=== PATIENT | male | born 1990 | race African-American/Black ===

== ENCOUNTER 2019-03-09 14:34 | Emergency (ER) | payer MEDICARE, OTHER ==
[~2019-03-09] VITALS: Ht 175.3 cm; Wt 81.6 kg
[~2019-03-09 14:34] MED LIST: NKM
[2019-03-09] MEDS ORDERED: RISPERDAL1 MG PO (15:33)
--- NOTE | 2019-03-09 15:33 | Emergency Room Report ---
History of Present Illness General Chief Complaint: Medication Refill Source: Patient Present Illness HPI 29-year-old male presents to the emergency department requesting medication refill for 1 mg Risperdal for which she takes daily. Patient states he has been out of his medication for 3 weeks he states he takes it for his schizophrenia. Patient denies symptoms at this time he denies SI, HI, delusions , hallucinations or manic episodes. Patient reports that he paces frequently. Patient states he does not currently have a primary prescribing provider he states he gets his refills from multiple different ERs he is a local to the [place] area he denies being this. Patient denies pain or chest pain, shortness of breath, wheezing, ANTOINE, drug or alcohol use. Patient denies fevers or chills. No other aggravating or relieving factors at this time Allergies: Coded Allergies: No Known Allergies (Unverified , 11/14/13) Patient History Past Medical History: see triage record, psych hx Past Surgical History: none Pertinent Family History: none Immunizations: UTD Reviewed Nursing Documentation: PMH: Agreed; PSxH: Agreed Nursing Documentation-PMH Past Medical History: No History, Except For History Of Psychiatric Problem: Yes - Schizophrenia Hx Seizures: Yes Review of Systems All Other Systems: negative except mentioned in HPI Physical Exam Vital Signs Date Time Temp Pulse Resp B/P (MAP) Pulse Ox O2 Delivery O2 Flow Rate FiO2 03/09/19 14:53 98.4 92 15 110/65 (80) 99 Room Air Sp02 EP Interpretation: reviewed, normal General Appearance: no apparent distress, alert, GCS 15, non-toxic Head: normocephalic, atraumatic Eyes: bilateral eye normal inspection, bilateral eye PERRL ENT: hearing grossly normal, normal voice Neck: full range of motion Respiratory: chest non-tender, lungs clear, normal breath sounds, speaking full sentences Cardiovascular #1: regular rate, rhythm Musculoskeletal: back normal, gait/station normal, normal range of motion, non- tender Neurologic: alert, oriented x3, responsive, motor strength/tone normal, sensory intact, normal gait, speech normal, grossly normal Psychiatric: judgement/insight normal, memory normal, no suicidal/homicidal ideation, no delusions, other - in appropriately insertedgiggling and smiling in accordance with conversation. Patient does provide sufficient detail answers to questions. Lymphatic: no adenopathy Medical Decision Making PA Attestation Dr. Chavez is my supervising Physician whom patient management has been discussed with. Diagnostic Impression: Primary Impression: Encounter for medication refill Additional Impression: Schizophrenia Qualified Codes: F20.9 - Schizophrenia, unspecified ER Course 29-year-old male presents to the emergency department requesting medication refill for 1 mg Risperdal for which she takes daily. Patient states he has been out of his medication for 3 weeks he states he takes it for his schizophrenia. Patient denies symptoms at this time he denies SI, HI, delusions , hallucinations or manic episodes. Patient reports that he paces frequently. Patient states he does not currently have a primary prescribing provider he states he gets his refills from multiple different ERs he is a local to the [place] area he denies being this. Patient denies pain or chest pain, shortness of breath, wheezing, ANTOINE, drug or alcohol use. Patient denies fevers or chills. No other aggravating or relieving factors at this time. Ddx considered but are not limited to: drug seeking, OD, compliance with medications, noncompliance with follow-up instructions, doctor shopping, schizophrenic episode just to name a few. Vital signs: are WNL, pt. is afebrile H&PE are most consistent with need for medication refill. --Patient does not pose an obvious harm to self or others he is alert and oriented and able to make decisions on his own. He is well-groomed/kept and in no acute distress and nontoxic in appearance. ORDERS: none required at this time, the diagnosis is clinical ED INTERVENTIONS: Risperdal 1mg PO -I do not identify an emergent condition at this time. With current presentation , pt. is stable for close outpatient follow up and conservative treatment. D/ w pt. to return promptly to ED with worsening or new symptoms.- Pt. verbalizes' understanding and agreement with proposed treatment plan.proposed treatment plan. DISCHARGE: At this time pt. is stable for d/c to home. Will provide printed patient care instructions, and any necessary prescriptions. Care plan and follow up instructions have been discussed with the patient prior to discharge. Last Vital Signs Date Time Temp Pulse Resp B/P (MAP) Pulse Ox O2 Delivery O2 Flow Rate FiO2 03/09/19 14:53 98.4 92 15 110/65 (80) 99 Room Air Disposition: HOME, SELF-CARE Condition: Stable Scripts Risperidone* (RISPERDAL*) 1 Mg Tablet 1 MG PO DAILY, #30 TAB Prov: Elsa Bo 03/09/19 Referrals: [facility] Patient Instructions: Medicine Refill at the Emergency Department Additional Instructions: Take medications as directed. Follow up with a Mental Health Specialist/ Psychiatrist in 3 days, even if your symptoms have resolved. --Please review [facility] resource information provided Return sooner to ED if new symptoms occur, or current symptoms become worse. - Please note that this Emergency Department Report was dictated using CloudAptitudeinterface control officer technology software, occasionally this can lead to erroneous entry secondary to interpretation by the dictation equipment. Elsa Bo Mar 09, 2019 15:33
[2019-03-09 15:57] VITALS: BP 110/65
--- NOTE | 2019-03-09 15:59 | NUR ---
ER DISCHARGE NOTE: Patient is cleared to be discharged per ERMD, pt is aox4, on room air, with stable vital signs. pt was given dc and prescription instructions, pt was able to verbalize understanding, pt id band removed without complications. pt is able to ambulate with steady gait. pt took all belongings.
== END 2019-03-09 15:59 | disposition home or self-care (01) ==
LOC: EMR 15:00
DX: F20.9 Schizophrenia, unspecified (principal); Z76.0 Encounter for issue of repeat prescription; G40.909 Epilepsy, unspecified, not intractable, without status epilepticus
CPT/HCPCS: 99282

== ENCOUNTER 2019-03-19 13:16 | Emergency (ER) | payer MEDICARE, OTHER ==
[~2019-03-19] VITALS: Ht 175.3 cm; Wt 81.6 kg
[~2019-03-19 13:16] MED LIST changes: +RISPERDAL1 MG PO
[2019-03-19] MEDS ORDERED: BENZTROPINE ME0.5 MG PO (13:29)
--- NOTE | 2019-03-19 13:30 | NUR ---
ED Nurse Note: Patient walked into ED c/o anxiety exacerbation, patient reports he is waiting for approval to see psychiatrist. patient is alert awake x4 ambulatory steady gait, breathing unlabored and even.
--- NOTE | 2019-03-19 14:30 | Emergency Room Report ---
History of Present Illness General Chief Complaint: General Complaint Present Illness HPI 29-year-old male presents to the emergency department requesting medications for anxiety. Patient reports in the past she was prescribed Xanax he states he has been having several anxiety attacks per week. Patient states currently he is not having any symptoms. Patient denies having a primary prescribing psychiatric provider. Patient is currently taking Risperdal. He reports hx of depression. Denies drug use, SI/HI, PSAs, or psychiatric hospitalizations. No aggravating or relieving factors at this time. During attack pt. describes shakiness and heightened anxiety, Denies CP, SOB or palpitations. Denies sweating or weight loss. Allergies: Coded Allergies: No Known Allergies (Unverified , 11/14/13) Patient History Past Medical History: see triage record Past Surgical History: none Pertinent Family History: none Reviewed Nursing Documentation: PMH: Agreed; PSxH: Agreed Nursing Documentation-PMH History Of Psychiatric Problem: Yes - depression Hx Seizures: Yes Review of Systems All Other Systems: negative except mentioned in HPI Physical Exam Vital Signs Date Time Temp Pulse Resp B/P (MAP) Pulse Ox O2 Delivery O2 Flow Rate FiO2 03/19/19 13:23 98.6 80 18 119/70 (86) 99 Room Air Sp02 EP Interpretation: reviewed, normal General Appearance: no apparent distress, alert, GCS 15, non-toxic Head: normocephalic, atraumatic Eyes: bilateral eye normal inspection, bilateral eye PERRL ENT: hearing grossly normal, normal voice Neck: full range of motion Respiratory: chest non-tender, lungs clear, normal breath sounds, speaking full sentences Cardiovascular #1: regular rate, rhythm Musculoskeletal: back normal, gait/station normal, normal range of motion, non- tender Neurologic: alert, oriented x3, responsive, motor strength/tone normal, sensory intact, speech normal, grossly normal Psychiatric: judgement/insight normal, memory normal, no suicidal/homicidal ideation, no delusions, other - calm affect, on occasions smiles and giggles inappropriately/ not in congruence with dialogue Skin: no rash, normal inspection Medical Decision Making PA Attestation Dr. Thompson Is my supervising Physician whom patient management has been discussed with. Diagnostic Impression: Primary Impression: Anxiety Additional Impression: Medication requested by patient but not prescribed or administered ER Course 29-year-old male presents to the emergency department requesting medications for anxiety. Patient reports in the past she was prescribed Xanax he states he has been having several anxiety attacks per week. Patient states currently he is not having any symptoms. Patient denies having a primary prescribing psychiatric provider. Patient is currently taking Risperdal. [place] drug use, SI /HI, PSAs, or psychiatric hospitalizations. No aggravating or relieving factors at this time. During attack pt. describes shakiness and heightened anxiety, Denies CP, SOB or palpitations. Denies sweating or weight loss. Ddx considered but are not limited to: drug seeking, OD, generalized anxiety, IL /PE just to name a few. Vital signs: are WNL, pt. is afebrile H&PE are most consistent with non-emergent request for medication refill. ORDERS: none required at this time, the diagnosis is clinical--- d/w pt. that this needs to be rx'd to him by a internet specialist. will provide psych resources for medication management. in the mean time will write for small qty of Vistaril of off label anxiety treatment PRN. ED INTERVENTIONS: None required at this time. DISCHARGE: At this time pt. is stable for d/c to home. Will provide printed patient care instructions, and any necessary prescriptions. Care plan and follow up instructions have been discussed with the patient prior to discharge. Last Vital Signs Date Time Temp Pulse Resp B/P (MAP) Pulse Ox O2 Delivery O2 Flow Rate FiO2 03/19/19 13:23 98.6 80 18 119/70 (86) 99 Room Air Disposition: HOME, SELF-CARE Condition: Stable Scripts Hydroxyzine Pamoate (VISTARIL) 25 Mg Capsule 25 MG PO Q6HR, #12 CAP Prov: Elsa Bo 03/19/19 Referrals: [facility] Patient Instructions: Generalized Anxiety Disorder, Medical Screening Exam Additional Instructions: Take medications as directed. Follow up with a Mental Health Specialist/ Psychiatrist in 3 days, even if your symptoms have resolved. --Please review [facility] resource information provided Return sooner to ED if new symptoms occur, or current symptoms become worse. - Please note that this Emergency Department Report was dictated using SecureNetfield sales representative technology software, occasionally this can lead to erroneous entry secondary to interpretation by the dictation equipment. Elsa Bo Mar 19, 2019 14:30
[2019-03-19] MEDS ORDERED: VISTARIL25 M1 PO (14:31)
[2019-03-19 14:37] VITALS: BP 119/70
--- NOTE | 2019-03-19 14:38 | NUR ---
ER DISCHARGE NOTE: Patient is cleared to be discharged per ERMD, pt is aox4, on room air, with stable vital signs. pt was given dc and prescription instructions, pt was able to verbalize understanding. pt is able to ambulate with steady gait. pt took all belongings.
[2019-03-19 14:39] VITALS: BP 119/70
== END 2019-03-19 14:35 | disposition home or self-care (01) ==
LOC: EMR 14:04
DX: F41.9 Anxiety disorder, unspecified (principal); F32.9 Major depressive disorder, single episode, unspecified
CPT/HCPCS: 99282

== ENCOUNTER 2019-04-13 14:06 | Emergency (ER) | payer MEDICARE, OTHER ==
[~2019-04-13] VITALS: Ht 175.3 cm; Wt 81.6 kg
[~2019-04-13 14:06] MED LIST changes: +BENZTROPINE ME0.5 MG PO; +VISTARIL25 M1 PO
[2019-04-13 14:30] VITALS: BP 111/65
[2019-04-13] MEDS ORDERED: NKM (14:31)
--- NOTE | 2019-04-13 14:39 | Emergency Room Report ---
History of Present Illness General Chief Complaint: Behavioral Complaint Source: Patient Present Illness HPI 29-year-old male history of smoking history of depression presents with acute suicidal ideations patient attempted to run into traffic, patient was seen by his friends who then recommended that he needs go to a psychiatric facility, he denies any aggravating alleviating factors he takes Abilify 15 mg daily, denies any fevers chills chest pain shortness of breath, severity is severe and constant Allergies: Coded Allergies: No Known Allergies (Unverified , 11/14/13) Patient History Past Medical History: see triage record Social History: Reports: smoking Reviewed Nursing Documentation: PMH: Agreed; PSxH: Agreed Nursing Documentation-PMH Past Medical History: No History, Except For History Of Psychiatric Problem: Yes - schizophrenia Hx Seizures: Yes Review of Systems All Other Systems: negative except mentioned in HPI Physical Exam Vital Signs Date Time Temp Pulse Resp B/P (MAP) Pulse Ox O2 Delivery O2 Flow Rate FiO2 04/13/19 14:26 98.2 89 17 111/65 (80) 98 Room Air Sp02 EP Interpretation: reviewed, normal General Appearance: well appearing, no apparent distress, alert Head: normocephalic, atraumatic Eyes: bilateral eye PERRL, bilateral eye EOMI ENT: uvula midline, moist mucus membranes Neck: supple, thyroid normal, supple/symm/no masses Respiratory: lungs clear, no respiratory distress, no retraction, no accessory muscle use Cardiovascular #1: normal peripheral pulses, regular rate, rhythm, no edema, no gallop, no murmur Gastrointestinal: non tender, soft, no guarding, no rebound Musculoskeletal: normal inspection Neurologic: alert, oriented x3 Psychiatric: mood/affect normal Skin: no rash, warm/dry Medical Decision Making Diagnostic Impression: Primary Impression: Behavioral disorder Additional Impression: Suicidal behavior Qualified Codes: R46.89 - Other symptoms and signs involving appearance and behavior ER Course 29-year-old male presents with acute suicidal ideations, his plan is to run into cars at some point at the moment he is not currently suicidal he states he wants to be seen at psychiatric facility voluntarily Patient is medically cleared Patient accepted by [facility] Laboratory Tests Test 04/13/19 14:50 White Blood Count 7.2 K/UL (4.8-10.8) Red Blood Count 5.02 M/UL (4.70-6.10) Hemoglobin 14.9 G/DL (14.2-18.0) Hematocrit 43.1 % (42.0-52.0) Mean Corpuscular Volume 86 FL (80-99) Mean Corpuscular Hemoglobin 29.6 PG (27.0-31.0) Mean Corpuscular Hemoglobin Concent 34.5 G/DL (32.0-36.0) Red Cell Distribution Width 11.7 % (11.6-14.8) Platelet Count 255 K/UL (150-450) Mean Platelet Volume 6.6 FL (6.5-10.1) Neutrophils (%) (Auto) 43.5 % (45.0-75.0) L Lymphocytes (%) (Auto) 36.8 % (20.0-45.0) Monocytes (%) (Auto) 8.4 % (1.0-10.0) Eosinophils (%) (Auto) 9.9 % (0.0-3.0) H Basophils (%) (Auto) 1.5 % (0.0-2.0) Sodium Level 144 MMOL/L (136-145) Potassium Level 3.9 MMOL/L (3.5-5.1) Chloride Level 111 MMOL/L (98-107) H Carbon Dioxide Level 27 MMOL/L (21-32) Anion Gap 6 mmol/L (5-15) Blood Urea Nitrogen 8 mg/dL (7-18) Creatinine 0.9 MG/DL (0.55-1.30) Estimate Glomerular Filtration Rate > 60 mL/min (>60) Glucose Level 91 MG/DL (74-106) Calcium Level 8.5 MG/DL (8.5-10.1) Total Bilirubin 0.2 MG/DL (0.2-1.0) Aspartate Amino Transferase (AST) 17 U/L (15-37) Alanine Aminotransferase (ALT) 17 U/L (12-78) Alkaline Phosphatase 56 U/L (46-116) Total Protein 5.9 G/DL (6.4-8.2) L Albumin 3.1 G/DL (3.4-5.0) L Globulin 2.8 g/dL Albumin/Globulin Ratio 1.1 (1.0-2.7) Salicylates Level 3.6 ug/mL (2.8-20) Urine Opiates Screen Negative (NEGATIVE) Acetaminophen Level < 2 MCG/ML (10-30) L Urine Barbiturates Screen Negative (NEGATIVE) Phencyclidine (PCP) Screen Negative (NEGATIVE) Urine Amphetamines Screen Negative (NEGATIVE) Urine Benzodiazepines Screen Negative (NEGATIVE) Urine Cocaine Screen Negative (NEGATIVE) Urine Marijuana (THC) Screen Positive (NEGATIVE) H Serum Alcohol < 3 mg/dL EKG Diagnostic Results EKG Time: 14:43 EP Interpretation: NSR, rate 65, QTc 380, no acute ST elevations, normal axis Last Vital Signs Date Time Temp Pulse Resp B/P (MAP) Pulse Ox O2 Delivery O2 Flow Rate FiO2 04/13/19 14:26 98.2 89 17 111/65 (80) 98 Room Air Disposition: XFER SHT-TRM HOSP Condition: Stable Patient Instructions: Self-Destructive Behavior Additional Instructions: The patient was provided with discharge instructions, notified to follow-up with a primary care doctor and or specialist in the next 24-48 hours, and to return to the ED if they have worsening of their symptoms. Please note that this report is being documented using Lucent Sky technology. This can lead to erroneous entry secondary to incorrect interpretation by the dictating instrument. Nael Garland MD Apr 13, 2019 14:39
[2019-04-13 15:03] LABS: BASOPHILS % (AUTO) 1.5 % (0.0-2.0); EOSINOPHILS % (AUTO) 9.9 % (0.0-3.0); HEMATOCRIT 43.1 % (42.0-52.0); HEMOGLOBIN 14.9 G/DL (14.2-18.0); LYMPHOCYTES % (AUTO) 36.8 % (20.0-45.0); MEAN CORPUSCULAR VOLUME 86 FL (80-99); MONOCYTES % (AUTO) 8.4 % (1.0-10.0); NEUTROPHILS % (AUTO) 43.5 % (45.0-75.0); PLATELET COUNT 255 K/UL (150-450); RED BLOOD COUNT 5.02 M/UL (4.70-6.10); RED CELL DISTRIBUTION WIDTH 11.7 % (11.6-14.8); WHITE BLOOD COUNT 7.2 K/UL (4.8-10.8)
[2019-04-13 15:16] LABS: ANION GAP 6 mmol/L (5-15); BLOOD UREA NITROGEN 8 mg/dL (7-18); CALCIUM 8.5 MG/DL (8.5-10.1); CARBON DIOXIDE 27 MMOL/L (21-32); CHLORIDE 111 MMOL/L (98-107); CREATININE 0.9 MG/DL (0.55-1.30); POTASSIUM 3.9 MMOL/L (3.5-5.1); SODIUM 144 MMOL/L (136-145)
[2019-04-13 15:20] LABS: ALANINE AMINOTRANSFERASE 17 U/L (12-78); ALBUMIN 3.1 G/DL (3.4-5.0); ALBUMIN/GLOBULIN RATIO 1.1 (1.0-2.7); ALKALINE PHOSPHATASE 56 U/L (46-116); ASPARTATE AMINO TRANSFERASE 17 U/L (15-37); BILIRUBIN,TOTAL 0.2 MG/DL (0.2-1.0)
[2019-04-13 16:53] VITALS: BP 122/75
[2019-04-13 19:05] VITALS: BP 123/72
[2019-04-13 21:48] VITALS: BP 116/75
[2019-04-13 23:00] VITALS: BP 114/71
[2019-04-13 23:45] VITALS: BP 109/61
== END 2019-04-13 23:45 | disposition short-term general hospital (02) ==
LOC: EMR 14:41
DX: R45.851 Suicidal ideations (principal); R46.89 Other symptoms and signs involving appearance and behavior; F20.9 Schizophrenia, unspecified; F17.200 Nicotine dependence, unspecified, uncomplicated
CPT/HCPCS: 36415; 80053; 80307; 85025; 93005; 99284; G0480; 80329

== ENCOUNTER 2019-04-21 14:57 | Emergency (ER) | payer MEDICARE, OTHER ==
[~2019-04-21] VITALS: Ht 175.3 cm; Wt 81.6 kg
--- NOTE | 2019-04-21 15:46 | NUR ---
ED Nurse Note: PT WALKED IN TO ER TODAY FROM HOME. AOX4. PT STATES HE IS HERE FOR MEDICAL CLEARANCE BEFORE GETTING ADMITTED TO [facility]. PT STATES HE IS HAVING SI WITH PLANS TO RUN INTO TRAFFIC AND IS HAVING AUDITORY HALLUCINATION. WHEN ASKED WHAT HE'S HEARING, PT STATES, "JUST A BUNCH OF RAMBLING." PT CALM AND COOPERATIVE. PT PLACED IN GOWN AND ALL BELONGINGS REMOVED.
--- NOTE | 2019-04-21 15:47 | NUR ---
ED Nurse Note: PT BELONGINGS PLACED IN LOCKER #2.
[2019-04-21 15:49] VITALS: BP 112/76
[2019-04-21 16:14] LABS: BASOPHILS % (AUTO) 1.8 % (0.0-2.0); EOSINOPHILS % (AUTO) 5.2 % (0.0-3.0); HEMATOCRIT 46.7 % (42.0-52.0); LYMPHOCYTES % (AUTO) 35.7 % (20.0-45.0); MEAN CORPUSCULAR VOLUME 87 FL (80-99); MONOCYTES % (AUTO) 5.8 % (1.0-10.0); NEUTROPHILS % (AUTO) 51.6 % (45.0-75.0); PLATELET COUNT 211 K/UL (150-450); RED BLOOD COUNT 5.37 M/UL (4.70-6.10); RED CELL DISTRIBUTION WIDTH 10.8 % (11.6-14.8); WHITE BLOOD COUNT 7.2 K/UL (4.8-10.8)
[2019-04-21 16:15] LABS: APPEARANCE,URINE CLEAR; BILIRUBIN, URINE NEGATIVE (NEGATIVE); GLUCOSE, URINE (UA) NEGATIVE (NEGATIVE); KETONES,URINE NEGATIVE (NEGATIVE); LEUKOCYTE ESTERASE ,URINE NEGATIVE (NEGATIVE); NITRITE,URINE NEGATIVE (NEGATIVE); PH,URINE 8 (4.5-8.0); PROTEIN,URINE NEGATIVE (NEGATIVE); UROBILINOGEN,URINE NORMAL MG/DL (0.0-1.0)
[2019-04-21 16:16] LABS: COLOR,URINE YELLOW
[2019-04-21 16:34] LABS: ANION GAP 10 mmol/L (5-15); BLOOD UREA NITROGEN 4 mg/dL (7-18); CALCIUM 9.4 MG/DL (8.5-10.1); CARBON DIOXIDE 26 MMOL/L (21-32); CHLORIDE 105 MMOL/L (98-107); CREATININE 0.8 MG/DL (0.55-1.30); POTASSIUM 4.3 MMOL/L (3.5-5.1); SODIUM 141 MMOL/L (136-145)
[2019-04-21 16:38] LABS: ALANINE AMINOTRANSFERASE 36 U/L (12-78); ALBUMIN 3.7 G/DL (3.4-5.0); ALBUMIN/GLOBULIN RATIO 1.1 (1.0-2.7); ALKALINE PHOSPHATASE 67 U/L (46-116); ASPARTATE AMINO TRANSFERASE 39 U/L (15-37); BILIRUBIN,TOTAL 0.4 MG/DL (0.2-1.0)
--- NOTE | 2019-04-21 16:47 | NUR ---
ED Nurse Note: PT LAYING PEACEFULLY IN BED IN NAD. AOX4. CALM AND COOPERATIVE.
--- NOTE | 2019-04-21 17:00 | NUR ---
ED Nurse Note: SANDWICH AND DRINK PROVIDED FOR PT.
--- NOTE | 2019-04-21 17:54 | Diagnostic Imaging Report ---
Indication: Chest pain Technique: One view of the chest Comparison: none Findings: Lungs and pleural spaces are clear. Heart size is normal. Impression: No acute process
--- NOTE | 2019-04-21 18:00 | NUR ---
ED Nurse Note: PT LAYING PEACEFULLY IN BED IN NAD. AOX4. CALM AND COOPERATIVE.
--- NOTE | 2019-04-21 18:59 | Emergency Room Report ---
History of Present Illness General Chief Complaint: General Complaint Source: Patient Present Illness HPI 29-year-old male with unknown history of psychiatric disorder here wanting to be medically cleared in order to go to [facility] as he has been expressing suicidal ideation in the past few days. Patient denies having any suicidal plans and having any suicidal attempts in the past. Patient denies homicidal ideation and having access to firearms. Patient denies mood changes, impulsivity, visual auditory hallucinations. Denies taking any medication. Denies using drugs, tobacco use, alcohol intake. Denies chest pain, shortness of breath, palpitation, abdominal pain, nausea vomiting and other associated symptoms. Allergies: Coded Allergies: No Known Allergies (Unverified , 11/14/13) Patient History Past Medical History: see triage record Past Surgical History: unable to obtain Family History: none Immunizations: UTD Reviewed Nursing Documentation: PMH: Agreed; PSxH: Agreed Nursing Documentation-PMH History Of Psychiatric Problem: Yes - shizophrenia Hx Seizures: Yes Review of Systems All Other Systems: negative except mentioned in HPI Physical Exam Vital Signs Date Time Temp Pulse Resp B/P (MAP) Pulse Ox O2 Delivery O2 Flow Rate FiO2 04/21/19 15:12 98.1 84 16 108/72 (84) 99 Room Air Sp02 EP Interpretation: reviewed, normal General Appearance: alert/responsive, no apparent distress, GCS 15, non-toxic Head: atraumatic Eyes: PERRL, lids + conjunctiva normal ENT: hearing intact, no angioedema Neck: supple/symm/no masses, no meningismus Respiratory: effort normal, no wheezing, chest symmetrical Cardiovascular: regular rate, rhythm, no edema Gastrointestinal: non-tender, no mass, non-distended, no rebound/guarding, normal bowel sounds Musculoskeletal: gait & station normal, strength & tone normal, normal ROM, non -tender Neurologic: oriented x3, sensory intact, normal speech Psychiatric: judgment & insight normal, memory normal, no delusions Suicide Risk Assessment: Suicidal Ideation: Yes Had intent to initiate attempt: No Pt's plan for suicide attempt: No Has means to complete attempt: No Skin: no rash Lymphatic: normal inspection, normal cervical nodes Medical Decision Making PA Attestation All diagnoses and treatment plans were reviewed and discussed with my supervising physician Dr. Urbina Diagnostic Impression: Primary Impression: Suicidal ideation ER Course 29-year-old male with unknown history of psychiatric disorder here wanting to be medically cleared in order to go to [facility] as he has been expressing suicidal ideation in the past few days. Patient denies having any suicidal plans and having any suicidal attempts in the past. Patient denies homicidal ideation and having access to firearms. Patient denies mood changes, impulsivity, visual auditory hallucinations. Denies taking any medication. Denies using drugs, tobacco use, alcohol intake. Denies chest pain, shortness of breath, palpitation, abdominal pain, nausea vomiting and other associated symptoms. Ddx considered but are not limited to: generalized anxiety disorder, panic attack, depression with psycotic featurs, bipolar disorder, drug overdose Vital signs: are WNL, pt. is afebrile H&PE are most consistent with: Suicidal ideation ORDERS: Psychiatric order set ED INTERVENTIONS: None required at this time. DISCHARGE: At this time pt. is stable for d/c to home. Will provide printed patient care instructions, and any necessary prescriptions. Care plan and follow up instructions have been discussed with the patient prior to discharge. Patient stable to be discharged patient is medically cleared EKG Diagnostic Results Rate: normal Rhythm: NSR ST Segments: no acute changes Last Vital Signs Date Time Temp Pulse Resp B/P (MAP) Pulse Ox O2 Delivery O2 Flow Rate FiO2 04/21/19 15:49 82 15 Room Air 04/21/19 15:49 98.3 112/76 98 Disposition: XFER SHT-TRM HOSP Condition: Stable Referrals: NOT CHOSEN IPA/MD,REFERRING (PCP) Patient Instructions: Suicidal Feelings: How to Help Yourself Mauricio Adkins Apr 21, 2019 18:59
--- NOTE | 2019-04-21 19:00 | NUR ---
HAND-OFF: PT LAYING PEACEFULLY IN BED IN NAD. AOX4. CALM AND COOPERATIVE. REPORT GIVEN TO IRAM RIVERA.
--- NOTE | 2019-04-21 19:01 | NUR ---
ED Nurse Note: report received from IRAM Bonds. pt seen in bed laying down, awake. no acute distress is noted at this time.
[2019-04-21 19:14] VITALS: BP 122/72
--- NOTE | 2019-04-21 19:20 | NUR ---
ED Nurse Note: Iv site to right hand removed. dressing applied.
--- NOTE | 2019-04-21 20:48 | NUR ---
ED Nurse Note: pt report given to IRAM Escalante from [place].
[2019-04-21 21:07] VITALS: BP 117/70
--- NOTE | 2019-04-21 22:20 | NUR ---
ED Nurse Note: pt in bed awake. no acute distress is noted.
[2019-04-22 00:19] VITALS: BP 102/80
--- NOTE | 2019-04-22 00:19 | NUR ---
ER DISCHARGE NOTE: [facility] arrived. pt was then transported to [facility] via [facility] in stable condition. All belongings given to [facility] personnel. pt is alert x4, ambulatory. No acute distress is noted,.
--- NOTE | 2019-04-25 14:49 | Cardiology Report ---
APPROVED REPORT EKG Measurement Heart [id number] Normal sinus rhythm Normal ECG
== END 2019-04-22 00:19 | disposition short-term general hospital (02) ==
LOC: EMR 15:30
DX: R45.851 Suicidal ideations (principal); F20.9 Schizophrenia, unspecified
CPT/HCPCS: 36415; 71045; 80053; 80307; 81003; 85025; 86850; 86900; 86901; 93005; 99285; G0480; 80329

== ENCOUNTER 2019-05-21 14:48 | Emergency (ER) | payer MEDICARE, OTHER ==
[~2019-05-21] VITALS: Ht 175.3 cm; Wt 81.6 kg
[2019-05-21] MEDS ORDERED: SEROQUEL25 MG ORAL (14:54)
--- NOTE | 2019-05-21 15:17 | NUR ---
ED Nurse Note: Pt walked in to ED for eval. per pt, "I need medical clearance to go to [facility]." Pt aox4, no distress noted. Placed in hospital gown. VSS at this time. Pt verbalized he wants to run into traffic. Charge nurse aware. Will continue to monitor patient.
[2019-05-21 15:20] VITALS: BP 110/69
--- NOTE | 2019-05-21 15:35 | NUR ---
ED Nurse Note: Belongings placed in locker #3.
--- NOTE | 2019-05-21 16:02 | NUR ---
ED Nurse Note: Pt in bed, asleep. No s/s pain/distress. Sitter at bedside. Safety precautions in place. Will continue to monitor.
--- NOTE | 2019-05-21 16:31 | NUR ---
ED Nurse Note: blood collected and sent down to lab
[2019-05-21 16:42] LABS: BASOPHILS % (AUTO) 1.8 % (0.0-2.0); EOSINOPHILS % (AUTO) 11.7 % (0.0-3.0); HEMATOCRIT 42.1 % (42.0-52.0); HEMOGLOBIN 14.3 G/DL (14.2-18.0); LYMPHOCYTES % (AUTO) 39.1 % (20.0-45.0); MEAN CORPUSCULAR VOLUME 86 FL (80-99); MONOCYTES % (AUTO) 7.6 % (1.0-10.0); NEUTROPHILS % (AUTO) 39.8 % (45.0-75.0); PLATELET COUNT 211 K/UL (150-450); RED BLOOD COUNT 4.91 M/UL (4.70-6.10); RED CELL DISTRIBUTION WIDTH 11.3 % (11.6-14.8); WHITE BLOOD COUNT 6.4 K/UL (4.8-10.8)
--- NOTE | 2019-05-21 17:01 | NUR ---
ED Nurse Note: Pt in bed, asleep. No s/s distress. Sitter at bedside. Will continue to monitor.
[2019-05-21 17:02] LABS: ANION GAP 9 mmol/L (5-15); BLOOD UREA NITROGEN 6 mg/dL (7-18); CALCIUM 8.3 MG/DL (8.5-10.1); CARBON DIOXIDE 27 MMOL/L (21-32); CHLORIDE 112 MMOL/L (98-107); CREATININE 0.7 MG/DL (0.55-1.30); POTASSIUM 4.1 MMOL/L (3.5-5.1); SODIUM 147 MMOL/L (136-145)
[2019-05-21 17:07] LABS: ALANINE AMINOTRANSFERASE 21 U/L (12-78); ALBUMIN 2.7 G/DL (3.4-5.0); ALBUMIN/GLOBULIN RATIO 1.1 (1.0-2.7); ALKALINE PHOSPHATASE 52 U/L (46-116); ASPARTATE AMINO TRANSFERASE 17 U/L (15-37); BILIRUBIN,TOTAL 0.3 MG/DL (0.2-1.0)
--- NOTE | 2019-05-21 17:40 | NUR ---
ED Nurse Note: Transferred to treatment room bed 1. Sitter at bedside.
[2019-05-21 18:37] VITALS: BP 118/75
--- NOTE | 2019-05-21 19:16 | NUR ---
HAND-OFF: Report given to IRAM Douglas. Endorsed plan of care. Sitter at bedside. Patient remains in stable condition.
--- NOTE | 2019-05-21 19:43 | NUR ---
ED Nurse Note: Patient sleeping comfortably, no s/s of acute distress. Sitter at bedside, aware of need for urine specimen.
--- NOTE | 2019-05-21 20:40 | NUR ---
ED Nurse Note: Patient request juice, two juices provided. Sitter at bedside. Will continue to monitor.
--- NOTE | 2019-05-21 20:59 | Emergency Room Report ---
History of Present Illness General Chief Complaint: Behavioral Complaint Source: Patient, Medical Record Present Illness HPI 29 YO Male presents to the ED c/o having increased depression and suicidal ideations, He describes generalized feeling of not wanting to live anymore, he denies specific plan. He endorses he was worried that he was having those thoughts and that prompted him to come to the ED. Pt. reports he has been accepted at [facility] by "cinthya" and states he just needs medical clearance first. He denies pain at this time. he reports that he is rx' d a medication that he cannot remember the name of for previous psych dx of Schizophrenia. Pt. reports intermittent episodes of auditory hallucinations of hearing voices speaking jibberish in the [place] language. He states this happens almost daily and does not last all day. This pt. denies PSA's. This patient denies having homicidal ideations and/or access to firearms. This pt. denies previous psychiatric hospitalizations. Denies hx of drug or alcohol use, abuse or dependency. Patient denies manic symptoms,mood changes,insomnia, impulsivity, visual/ auditory hallucinations, or loss of consciousness or bodily control. Denies cardiac, liver or renal disorder. Denies seizure hx. or hx of TBI. Denies CP, SOB, palpitations, abdominal pain, nausea vomiting, fevers, chills or other associated symptoms. Allergies: Coded Allergies: No Known Allergies (Unverified , 11/14/13) Patient History Past Medical History: see triage record Past Surgical History: none Pertinent Family History: none Reviewed Nursing Documentation: PMH: Agreed; PSxH: Agreed Nursing Documentation-PM Past Medical History: No History, Except For History Of Psychiatric Problem: Yes - schizoprenia Hx Seizures: Yes Review of Systems All Other Systems: negative except mentioned in HPI Physical Exam Vital Signs Date Time Temp Pulse Resp B/P (MAP) Pulse Ox O2 Delivery O2 Flow Rate FiO2 05/21/19 14:51 98.2 86 18 110/69 (83) 96 Room Air Sp02 EP Interpretation: reviewed, normal General Appearance: no apparent distress, alert, GCS 15, non-toxic, other - Disheveled and strong urine odor Head: normocephalic, atraumatic Eyes: bilateral eye normal inspection, bilateral eye PERRL ENT: hearing grossly normal, normal voice Neck: full range of motion Respiratory: chest non-tender, lungs clear, normal breath sounds, no wheezing, speaking full sentences Cardiovascular #1: regular rate, rhythm Gastrointestinal: normal bowel sounds, non tender, soft, non-distended, no guarding Musculoskeletal: back normal, gait/station normal, normal range of motion, non- tender Neurologic: alert, oriented x3, responsive, motor strength/tone normal, sensory intact, normal gait, speech normal, grossly normal Psychiatric: judgement/insight normal, mood/affect normal - flattened, provided little details to alexys. , no delusions Suicide Risk Assessment: Suicidal Ideation: Yes Had intent to initiate attempt: No Pt's plan for suicide attempt: No Has means to complete attempt: No Skin: no rash, normal color Medical Decision Making PA Attestation Dr. Garland Is my supervising Physician whom patient management has been discussed with. Diagnostic Impression: Primary Impression: Behavioral disorder ER Course 29 YO Male presents to the ED c/o having increased depression and suicidal ideations, He describes generalized feeling of not wanting to live anymore, he denies specific plan. He endorses he was worried that he was having those thoughts and that prompted him to come to the ED. Pt. reports he has been accepted at [facility] by "cinthya" and states he just needs medical clearance first. He denies pain at this time. he reports that he is rx' d a medication that he cannot remember the name of for previous psych dx of Schizophrenia. Pt. reports intermittent episodes of auditory hallucinations of hearing voices speaking jibberish in the [place] language. He states this happens almost daily and does not last all day. This pt. denies PSA's. This patient denies having homicidal ideations and/or access to firearms. This pt. denies previous psychiatric hospitalizations. Denies hx of drug or alcohol use, abuse or dependency. Patient denies manic symptoms,mood changes,insomnia, impulsivity, visual/ auditory hallucinations, or loss of consciousness or bodily control. Denies cardiac, liver or renal disorder. Denies seizure hx. or hx of TBI. Denies CP, SOB, palpitations, abdominal pain, nausea vomiting, fevers, chills or other associated symptoms. Pt is calm, cooperative, not very talkative. review of previous visits shows habitual ED visits for same cc. Pt. has been to psychiatric facilities in the past which is not consistent with pt. response to initial HPI/ROS questioning. It appears that pt. was previously taking abilify Ddx considered but are not limited to OD, SI/HI, psychosis, UTI, intoxication, inappropriate use of EMS resources, or malingering just to name a few. Vital signs: are WNL, pt. is afebrile H&PE are most consistent with behavioral/mental health issue ORDERS: -CBC, CMP: WNL -UA: negative for infection see results attached. -UDS: Postivie for THC -Salicylates and Acetaminophen - no acute intoxication. -Serum ETOH: WNL ED INTERVENTIONS: - None required at this time. DISPOSITION: Medically Cleared. It has been confirmed that this pt. is accepted to [facility] once cleared per telephone conversation. Labs Test 05/21/19 16:30 05/21/19 20:10 White Blood Count 6.4 K/UL (4.8-10.8) Red Blood Count 4.91 M/UL (4.70-6.10) Hemoglobin 14.3 G/DL (14.2-18.0) Hematocrit 42.1 % (42.0-52.0) Mean Corpuscular Volume 86 FL (80-99) Mean Corpuscular Hemoglobin 29.1 PG (27.0-31.0) Mean Corpuscular Hemoglobin Concent 33.9 G/DL (32.0-36.0) Red Cell Distribution Width 11.3 % (11.6-14.8) Platelet Count 211 K/UL (150-450) Mean Platelet Volume 6.8 FL (6.5-10.1) Neutrophils (%) (Auto) 39.8 % (45.0-75.0) Lymphocytes (%) (Auto) 39.1 % (20.0-45.0) Monocytes (%) (Auto) 7.6 % (1.0-10.0) Eosinophils (%) (Auto) 11.7 % (0.0-3.0) Basophils (%) (Auto) 1.8 % (0.0-2.0) Sodium Level 147 MMOL/L (136-145) Potassium Level 4.1 MMOL/L (3.5-5.1) Chloride Level 112 MMOL/L (98-107) Carbon Dioxide Level 27 MMOL/L (21-32) Anion Gap 9 mmol/L (5-15) Blood Urea Nitrogen 6 mg/dL (7-18) Creatinine 0.7 MG/DL (0.55-1.30) Estimat Glomerular Filtration Rate > 60 mL/min (>60) Glucose Level 103 MG/DL (74-106) Calcium Level 8.3 MG/DL (8.5-10.1) Total Bilirubin 0.3 MG/DL (0.2-1.0) Aspartate Amino Transf (AST/SGOT) 17 U/L (15-37) Alanine Aminotransferase (ALT/SGPT) 21 U/L (12-78) Alkaline Phosphatase 52 U/L (46-116) Total Protein 5.2 G/DL (6.4-8.2) Albumin 2.7 G/DL (3.4-5.0) Globulin 2.5 g/dL Albumin/Globulin Ratio 1.1 (1.0-2.7) Salicylates Level 2.8 ug/mL (2.8-20) Acetaminophen Level < 2 MCG/ML (10-30) Serum Alcohol < 3 mg/dL Urine Opiates Screen Negative (NEGATIVE) Urine Barbiturates Screen Negative (NEGATIVE) Phencyclidine (PCP) Screen Negative (NEGATIVE) Urine Amphetamines Screen Negative (NEGATIVE) Urine Benzodiazepines Screen Negative (NEGATIVE) Urine Cocaine Screen Negative (NEGATIVE) Urine Marijuana (THC) Screen Positive (NEGATIVE) Last Vital Signs Date Time Temp Pulse Resp B/P (MAP) Pulse Ox O2 Delivery O2 Flow Rate FiO2 05/21/19 18:37 97.6 86 18 118/75 97 Room Air Status: unchanged Disposition: XFER TO PSYCH HOSP/UNIT - [facility]. Condition: Serious Referrals: NOT CHOSEN IPA/,REFERRING (PCP) Elsa Bo May 21, 2019 20:59
--- NOTE | 2019-05-21 21:40 | NUR ---
ED Nurse Note: Patient resting comfortably, with no s/s of acute distress.
--- NOTE | 2019-05-21 22:40 | NUR ---
ED Nurse Note: Patient still sleeping, sitter at bedside. Will continue to monitor.
--- NOTE | 2019-05-21 23:40 | NUR ---
ED Nurse Note: Patient is resting comfortably with no s/s of acute distress. Sitter at bedside.
--- NOTE | 2019-05-22 00:42 | NUR ---
ED Nurse Note: Called and gave report to Florin WALDEN. Pending pick-up by [facility], will continue to monitor. Sitter at bedside.
--- NOTE | 2019-05-22 01:45 | NUR ---
JERRI HAS BEEN DCD PATIENT IS TRANSFERD TO [facility]
--- NOTE | 2019-05-22 01:51 | NUR ---
ED Nurse Note: Patient cleared for transport to [facility]. Patient is in stable condition. Report called in previously.
[2019-05-22 01:52] VITALS: BP 118/75
== END 2019-05-22 01:53 ==
LOC: EMR 15:20
DX: R45.851 Suicidal ideations (principal); F32.9 Major depressive disorder, single episode, unspecified; F20.9 Schizophrenia, unspecified
CPT/HCPCS: 36415; 80053; 80307; 85025; 99285; G0480

== ENCOUNTER 2019-06-05 15:57 | Emergency (ER) | payer MEDICARE, OTHER ==
[~2019-06-05] VITALS: Ht 175.3 cm; Wt 81.6 kg
[~2019-06-05 15:57] MED LIST changes: +SEROQUEL25 MG ORAL
[2019-06-05 16:20] VITALS: BP 115/69
--- NOTE | 2019-06-05 16:20 | NUR ---
ED Nurse Note: patient walked in to ER from home due to depression and feeling hurt himself since this morning. per pt, depression has been chronic problem but the deressed feeling got worse this morning. Patient alert and oriented x4 and ambulatory. skin clean and intact. follows command and cooperative. No acute distress noted at this time.
--- NOTE | 2019-06-05 16:22 | NUR ---
ED Nurse Note: CN and NIDHID made aware of pt has idea of hurting himself but no plans.
[2019-06-05 17:16] LABS: BASOPHILS % (AUTO) 1.8 % (0.0-2.0); EOSINOPHILS % (AUTO) 11.1 % (0.0-3.0); HEMATOCRIT 41.8 % (42.0-52.0); HEMOGLOBIN 14.7 G/DL (14.2-18.0); LYMPHOCYTES % (AUTO) 34.6 % (20.0-45.0); MEAN CORPUSCULAR VOLUME 83 FL (80-99); MONOCYTES % (AUTO) 8.2 % (1.0-10.0); NEUTROPHILS % (AUTO) 44.3 % (45.0-75.0); PLATELET COUNT 260 K/UL (150-450); RED BLOOD COUNT 5.06 M/UL (4.70-6.10); RED CELL DISTRIBUTION WIDTH 10.7 % (11.6-14.8); WHITE BLOOD COUNT 6.8 K/UL (4.8-10.8)
[2019-06-05 17:28] LABS: APPEARANCE,URINE CLEAR; BILIRUBIN, URINE NEGATIVE (NEGATIVE); GLUCOSE, URINE (UA) 2+ (NEGATIVE); KETONES,URINE NEGATIVE (NEGATIVE); LEUKOCYTE ESTERASE ,URINE NEGATIVE (NEGATIVE); NITRITE,URINE NEGATIVE (NEGATIVE); PH,URINE 6 (4.5-8.0); PROTEIN,URINE NEGATIVE (NEGATIVE); UROBILINOGEN,URINE 1 MG/DL (0.0-1.0)
[2019-06-05] MEDS ORDERED: QUEtiapine 200mg tab ORAL ONE (17:30)
[2019-06-05 17:31] LABS: ANION GAP 5 mmol/L (5-15); BLOOD UREA NITROGEN 9 mg/dL (7-18); CALCIUM 8.8 MG/DL (8.5-10.1); CARBON DIOXIDE 30 MMOL/L (21-32); CHLORIDE 108 MMOL/L (98-107); CREATININE 0.8 MG/DL (0.55-1.30); POTASSIUM 3.9 MMOL/L (3.5-5.1); SODIUM 143 MMOL/L (136-145)
[2019-06-05 17:32] LABS: COLOR,URINE YELLOW
[2019-06-05 17:35] LABS: ALANINE AMINOTRANSFERASE 28 U/L (12-78); ALBUMIN 3.4 G/DL (3.4-5.0); ALBUMIN/GLOBULIN RATIO 1.1 (1.0-2.7); ALKALINE PHOSPHATASE 74 U/L (46-116); ASPARTATE AMINO TRANSFERASE 35 U/L (15-37); BILIRUBIN,TOTAL 0.3 MG/DL (0.2-1.0)
--- NOTE | 2019-06-05 18:50 | Emergency Room Report ---
History of Present Illness General Chief Complaint: Behavioral Complaint Source: Patient Present Illness HPI 29-year-old male presents ED for evaluation. Patient states that he has been feeling depressed. States he wants to hurt himself. Does not have a plan. Denies hearing voices. States that he was discharged from [facility] and was prescribed Seroquel. States that he lost the prescription. When he called [facility] they told him to come to the hospital for medical clearance and that they would then accept him back. denies alcohol or drug use. No other aggravating relieving factors. Denies any other associated symptoms Allergies: Coded Allergies: No Known Allergies (Unverified , 11/14/13) Patient History Past Medical History: psych hx Past Surgical History: none Pertinent Family History: none Social History: Denies: smoking, alcohol use, drug use Immunizations: UTD Reviewed Nursing Documentation: PMH: Agreed; PSxH: Agreed Nursing Documentation-PMH Hx Seizures: Yes Review of Systems All Other Systems: negative except mentioned in HPI Physical Exam Vital Signs Date Time Temp Pulse Resp B/P (MAP) Pulse Ox O2 Delivery O2 Flow Rate FiO2 06/05/19 16:03 98.4 90 20 115/69 (84) 97 Room Air Sp02 EP Interpretation: reviewed, normal General Appearance: no apparent distress, alert, GCS 15, non-toxic Head: normocephalic, atraumatic Eyes: bilateral eye normal inspection, bilateral eye PERRL ENT: hearing grossly normal, normal pharynx, no angioedema, normal voice Neck: full range of motion, supple/symm/no masses Respiratory: chest non-tender, lungs clear, normal breath sounds, speaking full sentences Cardiovascular #1: regular rate, rhythm, no edema Cardiovascular #2: 2+ carotid (R), 2+ carotid (L), 2+ radial (R), 2+ radial (L) , 2+ dorsalis pedis (R), 2+ dorsalis pedis (L) Gastrointestinal: normal bowel sounds, non tender, soft, non-distended, no guarding, no rebound Rectal: deferred Genitourinary: normal inspection, no CVA tenderness Musculoskeletal: back normal, gait/station normal, normal range of motion, non- tender Neurologic: alert, oriented x3, responsive, motor strength/tone normal, sensory intact, speech normal Psychiatric: judgement/insight normal, memory normal, mood/affect normal, no suicidal/homicidal ideation Reflexes: 3+ bicep (R), 3+ bicep (L), 3+ tricep (R), 3+ tricep (L), 3+ knee (R) , 3+ knee (L) Lymphatic: no adenopathy Medical Decision Making Diagnostic Impression: Primary Impression: Behavioral change ER Course Hospital Course 29 yo M presents with depression. not taking his seroquel Differential diagnoses include: Major depressive disorder, unspecified psychosis , EtOH abuse, drug abuse Clinical course Patient placed on stretcher. On one to one observation. After initial history and physical I ordered labs, U. tox Labs-electrolytes normal, aspirin/Tylenol levels normal, EtOH level normal, U. tox +THC we contacted [facility] and they confirmed patient taking 300 mg Seroquel qHS. They will accept patient. Patient is medically cleared for psychiatric evaluation i. I feel this is a highly complex case requiring extensive working including EKG/Rhythm strip, Xray/CT/US, Blood/urine lab work, repeat exams while in ED, and administration of strong opiates/narcotics for pain control, admission to hospital or close patient follow up. Labs Test 06/05/19 17:00 White Blood Count 6.8 K/UL (4.8-10.8) Red Blood Count 5.06 M/UL (4.70-6.10) Hemoglobin 14.7 G/DL (14.2-18.0) Hematocrit 41.8 % (42.0-52.0) Mean Corpuscular Volume 83 FL (80-99) Mean Corpuscular Hemoglobin 29.0 PG (27.0-31.0) Mean Corpuscular Hemoglobin Concent 35.1 G/DL (32.0-36.0) Red Cell Distribution Width 10.7 % (11.6-14.8) Platelet Count 260 K/UL (150-450) Mean Platelet Volume 7.0 FL (6.5-10.1) Neutrophils (%) (Auto) 44.3 % (45.0-75.0) Lymphocytes (%) (Auto) 34.6 % (20.0-45.0) Monocytes (%) (Auto) 8.2 % (1.0-10.0) Eosinophils (%) (Auto) 11.1 % (0.0-3.0) Basophils (%) (Auto) 1.8 % (0.0-2.0) Urine Color Yellow Urine Appearance Clear Urine pH 6 (4.5-8.0) Urine Specific [place] 1.025 (1.005-1.035) Urine Protein Negative (NEGATIVE) Urine Glucose (UA) 2+ (NEGATIVE) Urine Ketones Negative (NEGATIVE) Urine Blood Negative (NEGATIVE) Urine Nitrite Negative (NEGATIVE) Urine Bilirubin Negative (NEGATIVE) Urine Urobilinogen 1 MG/DL (0.0-1.0) Urine Leukocyte Esterase Negative (NEGATIVE) Sodium Level 143 MMOL/L (136-145) Potassium Level 3.9 MMOL/L (3.5-5.1) Chloride Level 108 MMOL/L (98-107) Carbon Dioxide Level 30 MMOL/L (21-32) Anion Gap 5 mmol/L (5-15) Blood Urea Nitrogen 9 mg/dL (7-18) Creatinine 0.8 MG/DL (0.55-1.30) Estimat Glomerular Filtration Rate > 60 mL/min (>60) Glucose Level 105 MG/DL (74-106) Calcium Level 8.8 MG/DL (8.5-10.1) Total Bilirubin 0.3 MG/DL (0.2-1.0) Aspartate Amino Transf (AST/SGOT) 35 U/L (15-37) Alanine Aminotransferase (ALT/SGPT) 28 U/L (12-78) Alkaline Phosphatase 74 U/L (46-116) Total Protein 6.4 G/DL (6.4-8.2) Albumin 3.4 G/DL (3.4-5.0) Globulin 3.0 g/dL Albumin/Globulin Ratio 1.1 (1.0-2.7) Salicylates Level 2.9 ug/mL (2.8-20) Urine Opiates Screen Negative (NEGATIVE) Acetaminophen Level < 2 MCG/ML (10-30) Urine Barbiturates Screen Negative (NEGATIVE) Phencyclidine (PCP) Screen Negative (NEGATIVE) Urine Amphetamines Screen Negative (NEGATIVE) Urine Benzodiazepines Screen Negative (NEGATIVE) Urine Cocaine Screen Negative (NEGATIVE) Urine Marijuana (THC) Screen Positive (NEGATIVE) Serum Alcohol < 3 mg/dL Last Vital Signs Date Time Temp Pulse Resp B/P (MAP) Pulse Ox O2 Delivery O2 Flow Rate FiO2 06/05/19 16:20 98.4 20 115/69 97 Room Air 06/05/19 16:20 90 Status: improved Disposition: XFER TO PSYCH HOSP/UNIT Condition: Serious Referrals: NOT CHOSEN IPA/,REFERRING (PCP) Tony Liang MD Jun 05, 2019 18:50
--- NOTE | 2019-06-05 19:00 | NUR ---
HAND-OFF: Report given to IRAM Ward. no order to carry at this moment.
[2019-06-05 19:30] VITALS: BP 118/70
--- NOTE | 2019-06-05 19:33 | NUR ---
ED Nurse Note: pt is lying in bed with his eyes closed, breathing is regular and unlabored. he does not appear to be in any distress at this time. will continue to monitor
[2019-06-05 21:30] VITALS: BP 119/75
[2019-06-05 22:28] VITALS: BP 110/75
--- NOTE | 2019-06-05 22:50 | NUR ---
ED Nurse Note: pt lying in bed with eyes closed. breathing is even and non-labored. respirations are 15, pt does not appear to be in any distress at this time. will continue to monitor
--- NOTE | 2019-06-06 00:15 | NUR ---
ED Nurse Note: [id number] here to transport pt to [facility]. pt is aware that he will be transferred here. Report given to Boris
[2019-06-06 00:16] VITALS: BP 102/94
== END 2019-06-06 00:16 ==
LOC: EMR 16:42
DX: F32.9 Major depressive disorder, single episode, unspecified (principal); G40.909 Epilepsy, unspecified, not intractable, without status epilepticus
CPT/HCPCS: 36415; 80053; 80307; 81003; 85025; 99285; G0480

== ENCOUNTER 2019-09-10 18:22 | Emergency (ER) | payer MEDICARE, OTHER ==
[~2019-09-10] VITALS: Ht 175.3 cm; Wt 81.6 kg
[2019-09-10] MEDS ORDERED: RISPERDAL2 MG ORAL (18:50)
[2019-09-10 18:59] VITALS: BP 114/67
--- NOTE | 2019-09-10 19:10 | NUR ---
ED Nurse Note: Report recieved from IRAM Bravo. VSS., no s/s of distress noted. Pt resting in bed.
--- NOTE | 2019-09-10 19:21 | NUR ---
Sitter at bedside.
--- NOTE | 2019-09-10 19:45 | NUR ---
ED Nurse Note: Sitter at bedside, Pt resting in bed. VSS, no s/s of distress noted.
[2019-09-10 20:23] LABS: BASOPHILS % (AUTO) 1.3 % (0.0-2.0); EOSINOPHILS % (AUTO) 5.9 % (0.0-3.0); HEMATOCRIT 42.4 % (42.0-52.0); HEMOGLOBIN 14.2 G/DL (14.2-18.0); LYMPHOCYTES % (AUTO) 31.6 % (20.0-45.0); MEAN CORPUSCULAR VOLUME 87 FL (80-99); MONOCYTES % (AUTO) 4.1 % (1.0-10.0); NEUTROPHILS % (AUTO) 57.1 % (45.0-75.0); PLATELET COUNT 286 K/UL (150-450); RED BLOOD COUNT 4.88 M/UL (4.70-6.10); RED CELL DISTRIBUTION WIDTH 13.3 % (11.6-14.8); WHITE BLOOD COUNT 6.1 K/UL (4.8-10.8)
[2019-09-10 20:35] LABS: ANION GAP 10 mmol/L (5-15); BLOOD UREA NITROGEN 13 mg/dL (7-18); CALCIUM 9.4 MG/DL (8.5-10.1); CARBON DIOXIDE 28 MMOL/L (21-32); CHLORIDE 104 MMOL/L (98-107); CREATININE 0.9 MG/DL (0.55-1.30); POTASSIUM 3.7 MMOL/L (3.5-5.1); SODIUM 142 MMOL/L (136-145)
[2019-09-10 20:39] LABS: ALANINE AMINOTRANSFERASE 21 U/L (12-78); ALBUMIN 3.9 G/DL (3.4-5.0); ALBUMIN/GLOBULIN RATIO 1.1 (1.0-2.7); ALKALINE PHOSPHATASE 75 U/L (46-116); ASPARTATE AMINO TRANSFERASE 16 U/L (15-37); BILIRUBIN,TOTAL 0.4 MG/DL (0.2-1.0)
--- NOTE | 2019-09-10 20:45 | NUR ---
ED Nurse Note: Sitter at bedside, Pt resting in bed. VSS, no s/s of distress noted.
--- NOTE | 2019-09-10 21:45 | NUR ---
ED Nurse Note: Sitter at bedside, Pt resting in bed. VSS, no s/s of distress noted.
--- NOTE | 2019-09-10 22:18 | Emergency Room Report ---
History of Present Illness General Chief Complaint: Suicidal Source: Patient Present Illness HPI 29-year-old male with history of schizophrenia currently on respite all here complaining of having suicidal ideation. Patient has been here to [facility] multiple times saying that he wants medical clearance and then to get checked into [facility]. Patient reports the last time he did not go to [facility]. Denies any homicidal ideation. Reports that he has not had any psychiatric medications recently. Denies homicidal ideation. Denies all other associated symptoms. Denies drug use, tobacco smoke, alcohol intake. Denies any pain at this time. Allergies: Coded Allergies: No Known Allergies (Unverified , 11/14/13) Patient History Past Medical History: see triage record Past Surgical History: none Family History: none Immunizations: UTD Reviewed Nursing Documentation: PMH: Agreed; PSxH: Agreed Nursing Documentation-PMH Past Medical History: No History, Except For Hx Cardiac Problems: No Hx Hypertension: No Hx Pacemaker: No Hx Asthma: No Hx COPD: No Hx Diabetes: No Hx Cancer: No Hx Gastrointestinal Problems: No Hx Dialysis: No History Of Psychiatric Problem: Yes - Schizophrenia Hx Neurological Problems: No Hx Cerebrovascular Accident: No Hx Seizures: No Review of Systems All Other Systems: negative except mentioned in HPI Physical Exam Vital Signs Date Time Temp Pulse Resp B/P (MAP) Pulse Ox O2 Delivery O2 Flow Rate FiO2 09/10/19 18:43 97.3 86 14 114/67 (83) 99 Room Air Sp02 EP Interpretation: reviewed, normal General Appearance: alert/responsive, no apparent distress, GCS 15, non-toxic Head: atraumatic Eyes: PERRL, lids + conjunctiva normal ENT: hearing intact, no angioedema Neck: supple/symm/no masses, no meningismus Respiratory: effort normal, no wheezing, chest symmetrical Cardiovascular: regular rate, rhythm, no edema Gastrointestinal: non-tender, no mass Musculoskeletal: gait & station normal Neurologic: oriented x3, sensory intact, normal speech Psychiatric: judgment & insight normal Suicide Risk Assessment: Suicidal Ideation: Yes Had intent to initiate attempt: Yes Pt's plan for suicide attempt: Yes Has means to complete attempt: Yes Skin: no rash, well hydrated Lymphatic: normal inspection Medical Decision Making PA Attestation All diagnoses and treatment plans were reviewed and discussed with my supervising physician Dr. Urbina Diagnostic Impression: Primary Impression: Suicidal ideation ER Course 29-year-old male with history of schizophrenia currently on respite all here complaining of having suicidal ideation. Patient has been here to [facility] multiple times saying that he wants medical clearance and then to get checked into [facility]. Patient reports the last time he did not go to [facility]. Denies any homicidal ideation. Reports that he has not had any psychiatric medications recently. Denies homicidal ideation. Denies all other associated symptoms. Denies drug use, tobacco smoke, alcohol intake. Denies any pain at this time. Ddx considered but are not limited to: generalized anxiety disorder, panic attack, depression with psycotic featurs, bipolar disorder, drug overdose Vital signs: are WNL, pt. is afebrile H&PE are most consistent with: SI, Medical clearance for psychiatric hospital placement ORDERS: Psychiatric order set ED INTERVENTIONS: None required at this time. Patient is medically cleared Patient to be transferred to a psychiatric facility, I signed out the patient to Dr. Self at 10PM Last Vital Signs Date Time Temp Pulse Resp B/P (MAP) Pulse Ox O2 Delivery O2 Flow Rate FiO2 09/10/19 18:59 86 14 Room Air 09/10/19 18:59 97.3 114/67 99 Disposition: XFER TO PSYCH HOSP/UNIT Condition: Stable Referrals: NOT CHOSEN AICHA/,REFERRING (PCP) Mauricio Adkins Sep 10, 2019 22:18
--- NOTE | 2019-09-10 22:45 | NUR ---
ED Nurse Note: Sitter at bedside, Pt resting in bed. VSS, no s/s of distress noted.
--- NOTE | 2019-09-10 23:45 | NUR ---
ED Nurse Note: Sitter at bedside, Pt resting in bed. VSS, no s/s of distress noted.
--- NOTE | 2019-09-11 00:45 | NUR ---
ED Nurse Note: Sitter at bedside, Pt resting in bed. VSS, no s/s of distress noted.
--- NOTE | 2019-09-11 01:40 | NUR ---
ED Nurse Note: MEDITECH DOWNTIME
[2019-09-11] MEDS ORDERED: RISPERIDONE3 MG ORAL (05:59)
[2019-09-11 06:00] VITALS: BP 100/72
== END 2019-09-11 06:00 | disposition home or self-care (01) ==
LOC: EMR 19:25
DX: R45.851 Suicidal ideations (principal); F20.9 Schizophrenia, unspecified
CPT/HCPCS: 36415; 80053; 80307; 85025; 99285; G0480

== ENCOUNTER 2019-10-19 01:04 | Emergency (ER) | payer MEDICARE, OTHER ==
[~2019-10-19] VITALS: Ht 175.3 cm; Wt 81.6 kg
[~2019-10-19 01:04] MED LIST changes: +RISPERDAL2 MG ORAL; +RISPERIDONE3 MG ORAL
[2019-10-19 01:36] VITALS: BP 121/76
--- NOTE | 2019-10-19 01:36 | NUR ---
ER Nurse Note: Pt walked in c/o psych eval. Pt denies SI, HI. Pt stated he wants to be medically cleared to be placed at a psych facility.
[2019-10-19 02:20] VITALS: BP 126/78
--- NOTE | 2019-10-19 02:29 | Emergency Room Report ---
History of Present Illness General Chief Complaint: Behavioral Complaint Source: Patient Present Illness HPI Disclaimer: Please note that this report is being documented using Tass[employer] technology. This can lead to erroneous entry secondary to incorrect interpretation by the dictating instrument. HPI: This is a 29-year-old male with a history of schizophrenia currently taking risperidone presenting for evaluation of suicidal ideation and requesting medical clearance prior to psychiatric placement. He states that he has been compliant with his Risperdal regimen however he is unable to see his counselors given the recent quarantine precautions over COVID-19. He reports feeling increasingly suicidal and thought about running in front of traffic earlier today but stopped himself. Denies any alcohol or drug abuse, ingestions or other attempts at self-harm. Denies homicidality. He states he called the [facility] and they have a bed waiting for him as long as he is medically cleared. He presents requesting medical clearance. He states he is hearing voices but they are not telling him to do anything and can tell the difference between hearing the voices and reality. States he needs psychiatric evaluation. PMH: Schizophrenia PSH: Reviewed Allergies: Denied Social Hx: Denied COVID-19 risk:Contact w/high r: No COVID-19 risk:Travel to affect: No Has patient experienced huffman: No Allergies: Coded Allergies: No Known Allergies (Unverified , 11/14/13) Nursing Documentation-[facility] Past Medical History: No History, Except For Hx Cardiac Problems: No Hx Hypertension: No Hx Pacemaker: No Hx Asthma: No Hx COPD: No Hx Diabetes: No Hx Cancer: No Hx Gastrointestinal Problems: No Hx Dialysis: No Hx Neurological Problems: No Hx Cerebrovascular Accident: No Hx Seizures: No Review of Systems All Other Systems: negative except mentioned in HPI Physical Exam Vital Signs Date Time Temp Pulse Resp B/P (MAP) Pulse Ox O2 Delivery O2 Flow Rate FiO2 10/19/19 01:16 97.9 78 18 121/76 (91) 94 Room Air General: Awake and alert, no acute distress HEENT: NC/AT. EOMI. Neck: Supple, trachea midline Chest Wall: No tenderness, no deformity Cardiovascular: RRR. S1 and S2 normal. Resp: Normal work of breathing Skin: Intact. No abrasions, laceration or rash over the exposed skin MSK: Normal tone and bulk. Moving all extremities. No obvious deformity. Neuro: Awake and alert. Cooperative with exam. Reports intermittent SI. Denies homicidality. Rational. Mentating appropriately. Medical Decision Making Diagnostic Impression: Primary Impression: Behavioral disorder ER Course This is a 29-year-old male with history of schizophrenia presenting medical clearance prior to psychiatric admission at [facility]. He states there is a bed waiting for him. He reports intermittent SI and thought about running in front of traffic today but symptoms are currently controlled. He has been compliant with his Risperdal. Not currently suicidal or hearing voices. Will obtain labs for medical screening prior to psychiatric evaluation and try to arrange for voluntary placement. Laboratory Tests Test 10/19/19 02:00 10/19/19 02:18 Urine Opiates Screen Negative (NEGATIVE) Urine Barbiturates Screen Negative (NEGATIVE) Phencyclidine (PCP) Screen Negative (NEGATIVE) Urine Amphetamines Screen Negative (NEGATIVE) Urine Benzodiazepines Screen Negative (NEGATIVE) Urine Cocaine Screen Negative (NEGATIVE) Urine Marijuana (THC) Screen Negative (NEGATIVE) White Blood Count 10.1 K/UL (4.8-10.8) Red Blood Count 5.25 M/UL (4.70-6.10) Hemoglobin 15.6 G/DL (14.2-18.0) Hematocrit 44.1 % (42.0-52.0) Mean Corpuscular Volume 84 FL (80-99) Mean Corpuscular Hemoglobin 29.8 PG (27.0-31.0) Mean Corpuscular Hemoglobin Concent 35.5 G/DL (32.0-36.0) Red Cell Distribution Width 11.7 % (11.6-14.8) Platelet Count 208 K/UL (150-450) Mean Platelet Volume 7.5 FL (6.5-10.1) Neutrophils (%) (Auto) 83.1 % (45.0-75.0) H Lymphocytes (%) (Auto) 12.3 % (20.0-45.0) L Monocytes (%) (Auto) 2.8 % (1.0-10.0) Eosinophils (%) (Auto) 1.1 % (0.0-3.0) Basophils (%) (Auto) 0.7 % (0.0-2.0) Sodium Level 139 MMOL/L (136-145) Potassium Level 4.6 MMOL/L (3.5-5.1) Chloride Level 103 MMOL/L (98-107) Carbon Dioxide Level 24 MMOL/L (21-32) Anion Gap 12 mmol/L (5-15) Blood Urea Nitrogen 11 mg/dL (7-18) Creatinine 0.9 MG/DL (0.55-1.30) Estimated Glomerular Filtration Rate > 60 mL/min (>60) Glucose Level 117 MG/DL (74-106) H Calcium Level 9.7 MG/DL (8.5-10.1) Total Bilirubin 0.3 MG/DL (0.2-1.0) Aspartate Amino Transferase (AST) 20 U/L (15-37) Alanine Aminotransferase (ALT) 37 U/L (12-78) Alkaline Phosphatase 82 U/L (46-116) Total Protein 8.2 G/DL (6.4-8.2) Albumin 4.4 G/DL (3.4-5.0) Globulin 3.8 g/dL Albumin/Globulin Ratio 1.2 (1.0-2.7) Salicylates Level 3.3 ug/mL (2.8-20) Acetaminophen Level < 2 MCG/ML (10-30) L Serum Alcohol < 3 mg/dL Reevaluation Time: 03:07 Last Vital Signs Date Time Temp Pulse Resp B/P (MAP) Pulse Ox O2 Delivery O2 Flow Rate FiO2 10/19/19 01:36 97.9 80 18 121/76 94 Room Air Reevaluation Impression Labs including tox urine are returned within normal limits. The patient remains in stable condition and appropriate for transfer to psychiatric facility. He is medically cleared for psychiatric evaluation. Continues to deny thoughts of harming himself at this time. Will arrange transport. 0600: We were planning to send the patient to [facility] as there is no bed available at [place] however the patient declined. He stated that after sleeping in the emergency department he felt much better. I offered to give him his morning Risperdal which he accepted. He states he is no longer suicidal , no longer hearing voices and feeling well enough to follow-up with his psychiatrist. He has done this in the past. Currently he denies any thoughts of harming himself, others, voices, plans or any other acute psychiatric illness. Patient is not on a legal hold and I see no indication for a 5150 at this time. He does not appear to be a threat to himself at this time and I believe he would return if he felt suicidal again. Patient has had multiple emergency department visits with similar presentations. Do not believe that requires involuntary hospitalization at this time or that it would reduce his risk over the long-term. I instructed him to return to the emergency department should he have any recurrence of these thoughts though he does have good follow-up and appears to take his medication as instructed. Patient be discharged to follow-up with his psychiatrist. Disposition: HOME, SELF-CARE Condition: Stable Referrals: NOT CHOSEN AICHA/,REFERRING (PCP) Alec Urbina MD Oct 19, 2019 02:29
[2019-10-19 02:33] LABS: BASOPHILS % (AUTO) 0.7 % (0.0-2.0); EOSINOPHILS % (AUTO) 1.1 % (0.0-3.0); HEMATOCRIT 44.1 % (42.0-52.0); HEMOGLOBIN 15.6 G/DL (14.2-18.0); LYMPHOCYTES % (AUTO) 12.3 % (20.0-45.0); MEAN CORPUSCULAR VOLUME 84 FL (80-99); MONOCYTES % (AUTO) 2.8 % (1.0-10.0); NEUTROPHILS % (AUTO) 83.1 % (45.0-75.0); PLATELET COUNT 208 K/UL (150-450); RED BLOOD COUNT 5.25 M/UL (4.70-6.10); RED CELL DISTRIBUTION WIDTH 11.7 % (11.6-14.8); WHITE BLOOD COUNT 10.1 K/UL (4.8-10.8)
--- NOTE | 2019-10-19 02:42 | NUR ---
ER Nurse Note: Pt stated he is hearing voices to run into traffic but has not attempted. Pt is taking risperidone as scheduled but stated it is not helping. LT AC SLIV established patent. All orders completed per ERMD orders; awaiting blood and urine results. Pt stated he has a bed at [facility] and needs to be medically cleared. Belongings placed in locker 3. Endorsed care to oncoming RN for continuity of care.
--- NOTE | 2019-10-19 02:44 | NUR ---
ED Nurse Note: Received report from Josselyn WALDEN. Pt seen sleeping in bed. Not in any distress. Safety and comfort provided. Will cont to monitor.
[2019-10-19 02:58] LABS: ANION GAP 12 mmol/L (5-15); BLOOD UREA NITROGEN 11 mg/dL (7-18); CALCIUM 9.7 MG/DL (8.5-10.1); CARBON DIOXIDE 24 MMOL/L (21-32); CHLORIDE 103 MMOL/L (98-107); CREATININE 0.9 MG/DL (0.55-1.30); POTASSIUM 4.6 MMOL/L (3.5-5.1); SODIUM 139 MMOL/L (136-145)
[2019-10-19 03:05] LABS: ALANINE AMINOTRANSFERASE 37 U/L (12-78); ALBUMIN 4.4 G/DL (3.4-5.0); ALBUMIN/GLOBULIN RATIO 1.2 (1.0-2.7); ALKALINE PHOSPHATASE 82 U/L (46-116); ASPARTATE AMINO TRANSFERASE 20 U/L (15-37); BILIRUBIN,TOTAL 0.3 MG/DL (0.2-1.0)
[2019-10-19 05:02] VITALS: BP 118/73
--- NOTE | 2019-10-19 05:02 | NUR ---
ED Nurse Note: Pt seen sleeping in bed. Breathing even and unlabored. Safety and comfort provided.
[2019-10-19 06:16] VITALS: BP 122/70
--- NOTE | 2019-10-19 06:16 | NUR ---
ED Nurse Note: Pt cleared by ERMD for discharge. DC instructions was given and explained to pt and verbalized understanding of teachings. All medical deviecs such as ID band and IV line removed. Pt is AAO x4, ambulatory and left with all personal belongings. Pt will take the bus.
== END 2019-10-19 06:16 | disposition home or self-care (01) ==
LOC: EMR 01:33
DX: F91.9 Conduct disorder, unspecified (principal); R45.851 Suicidal ideations; F20.9 Schizophrenia, unspecified
CPT/HCPCS: 36415; 80053; 80307; 85025; 99285; G0480

== ENCOUNTER 2019-10-29 10:39 | Emergency (ER) | payer MEDICARE, OTHER ==
[~2019-10-29] VITALS: Ht 175.3 cm; Wt 81.6 kg
[2019-10-29 10:49] VITALS: BP 138/88
[2019-10-29 11:00] VITALS: BP 138/88
--- NOTE | 2019-10-29 11:12 | NUR ---
ED Nurse Note: IV line established. Blood and specimen collected and sent to lab.
--- NOTE | 2019-10-29 11:17 | Emergency Room Report ---
History of Present Illness General Chief Complaint: Behavioral Complaint Source: Patient (Alec Urbina MD) Present Illness HPI Disclaimer: Please note that this report is being documented using DRAGON technology. This can lead to erroneous entry secondary to incorrect interpretation by the dictating instrument. HPI: This is a 29-year-old male with a history of schizophrenia currently taking risperidone presenting for evaluation of suicidal ideation and requesting medical clearance prior to psychiatric placement. Patient is requesting medical clearance for voluntary psychiatric evaluation at [facility] where he has been seen multiple times in the past. He states there is a bed waiting for him in 1 hour and he only needs medical clearance. Reports hearing increased voices telling him to run in front of traffic. He has not acted on these impulses. He has not tried to harm himself, ingested medications, toxicologic substance or if made any other attempts to harm himself at this time. He states he is been compliant with his Risperdal therapy. Currently denies suicidal thoughts but is worried they might come back. PMH: Schizophrenia PSH: Reviewed Allergies: Denied Social Hx: Denied (Alec Urbina MD) Allergies: Coded Allergies: No Known Allergies (Unverified , 11/14/13) COVID-19 Screening Contact w/high risk pt: No Recent Travel to affected area: No Experienced COVID-19 symptoms?: No (Alec Urbina MD) Nursing Documentation-PMH Hx Cardiac Problems: No Hx Hypertension: No Hx Pacemaker: No Hx Asthma: No Hx COPD: No Hx Diabetes: No Hx Cancer: No Hx Gastrointestinal Problems: No Hx Dialysis: No Hx Neurological Problems: No Hx Cerebrovascular Accident: No Hx Seizures: No (Alec Urbina MD) Review of Systems All Other Systems: negative except mentioned in HPI (Alec Urbina MD) Physical Exam Vital Signs Date Time Temp Pulse Resp B/P (MAP) Pulse Ox O2 Delivery O2 Flow Rate FiO2 10/29/19 10:49 98.2 90 16 138/88 (105) 97 Room Air General: Awake and alert, no acute distress HEENT: NC/AT. EOMI. Neck: Supple, trachea midline Chest Wall: No tenderness, no deformity Cardiovascular: RRR. S1 and S2 normal. No murmur appreciated Resp: Normal work of breathing. No cough, wheezing or crackles appreciated Abdomen: Abdomen is soft, nondistended. Nontender Skin: Intact. No abrasions, laceration or rash over the exposed skin MSK: Normal tone and bulk. Moving all extremities. No obvious deformity. Neuro: Awake and alert. Mentating appropriately. Answering questions appropriately. Currently denying SI/HI though reports recently feeling suicidal (Alec Urbina MD) Medical Decision Making ER Course Is a 29-year-old male presenting for evaluation of suicidal ideation requesting medical clearance prior to voluntary psychiatric evaluation at [facility]. Patient states he is not actively suicidal at this time but has had suicidal thoughts of late. He is compliant with his withdrawal therapy. Will obtain labs for medical clearance and try to arrange psychiatric evaluation. He is not actively suicidal at this time. Do not believe he requires 5150 legal hold. He has had multiple emergency department visits with similar presentations. Laboratory Tests Test 10/29/19 11:14 10/29/19 11:44 Sodium Level 138 MMOL/L (136-145) Potassium Level 4.3 MMOL/L (3.5-5.1) Chloride Level 103 MMOL/L (98-107) Carbon Dioxide Level 22 MMOL/L (21-32) Anion Gap 13 mmol/L (5-15) Blood Urea Nitrogen 12 mg/dL (7-18) Creatinine 0.7 MG/DL (0.55-1.30) Estimated Glomerular Filtration Rate > 60 mL/min (>60) Glucose Level 109 MG/DL (74-106) H Calcium Level 9.2 MG/DL (8.5-10.1) Total Bilirubin 0.3 MG/DL (0.2-1.0) Aspartate Amino Transferase (AST) 30 U/L (15-37) Alanine Aminotransferase (ALT) 18 U/L (12-78) Alkaline Phosphatase 84 U/L (46-116) Total Protein 7.6 G/DL (6.4-8.2) Albumin 3.9 G/DL (3.4-5.0) Globulin 3.7 g/dL Albumin/Globulin Ratio 1.1 (1.0-2.7) Salicylates Level 3.5 ug/mL (2.8-20) Urine Opiates Screen Negative (NEGATIVE) Acetaminophen Level < 2 MCG/ML (10-30) L Urine Barbiturates Screen Negative (NEGATIVE) Phencyclidine (PCP) Screen Negative (NEGATIVE) Urine Amphetamines Screen Negative (NEGATIVE) Urine Benzodiazepines Screen Negative (NEGATIVE) Urine Cocaine Screen Negative (NEGATIVE) Urine Marijuana (THC) Screen Positive (NEGATIVE) H Serum Alcohol < 3 mg/dL White Blood Count 9.0 K/UL (4.8-10.8) Red Blood Count 4.80 M/UL (4.70-6.10) Hemoglobin 14.2 G/DL (14.2-18.0) Hematocrit 40.4 % (42.0-52.0) L Mean Corpuscular Volume 84 FL (80-99) Mean Corpuscular Hemoglobin 29.5 PG (27.0-31.0) Mean Corpuscular Hemoglobin Concent 35.1 G/DL (32.0-36.0) Red Cell Distribution Width 11.7 % (11.6-14.8) Platelet Count 182 K/UL (150-450) Mean Platelet Volume 7.6 FL (6.5-10.1) Neutrophils (%) (Auto) 56.0 % (45.0-75.0) Lymphocytes (%) (Auto) 26.7 % (20.0-45.0) Monocytes (%) (Auto) 11.4 % (1.0-10.0) H Eosinophils (%) (Auto) 4.5 % (0.0-3.0) H Basophils (%) (Auto) 1.5 % (0.0-2.0) (Alec Urbina MD) ER Course Patient signed out to me pending voluntary psychiatric placement. While awaiting placement patient expressed to me he was no longer suicidal and wished to be discharged to self-care. Again he denied any suicidal or homicidal ideation at time of discharge. Patient discharged to self-care. (Akil Morgan M.D.) Reevaluation Time: 13:57 Last Vital Signs Date Time Temp Pulse Resp B/P (MAP) Pulse Ox O2 Delivery O2 Flow Rate FiO2 10/29/19 10:49 98.2 90 16 138/88 (105) 97 Room Air Reevaluation Impression Labs including tox panel returned within normal limits. The patient remains in stable condition. We are awaiting a bed assignment at a voluntary psychiatric facility that would accept him. Patient is medically cleared for transfer to psychiatric facility for suicidal ideations. (Alec Urbina MD) Alec Urbina MD Oct 29, 2019 11:17 Akil Morgan M.D. Oct 29, 2019 16:57
[2019-10-29 11:53] LABS: ANION GAP 13 mmol/L (5-15); BLOOD UREA NITROGEN 12 mg/dL (7-18); CALCIUM 9.2 MG/DL (8.5-10.1); CARBON DIOXIDE 22 MMOL/L (21-32); CHLORIDE 103 MMOL/L (98-107); CREATININE 0.7 MG/DL (0.55-1.30); POTASSIUM 4.3 MMOL/L (3.5-5.1); SODIUM 138 MMOL/L (136-145)
[2019-10-29 11:58] LABS: ALANINE AMINOTRANSFERASE 18 U/L (12-78); ALBUMIN 3.9 G/DL (3.4-5.0); ALBUMIN/GLOBULIN RATIO 1.1 (1.0-2.7); ALKALINE PHOSPHATASE 84 U/L (46-116); ASPARTATE AMINO TRANSFERASE 30 U/L (15-37); BILIRUBIN,TOTAL 0.3 MG/DL (0.2-1.0)
[2019-10-29 12:29] LABS: BASOPHILS % (AUTO) 1.5 % (0.0-2.0); EOSINOPHILS % (AUTO) 4.5 % (0.0-3.0); HEMATOCRIT 40.4 % (42.0-52.0); HEMOGLOBIN 14.2 G/DL (14.2-18.0); LYMPHOCYTES % (AUTO) 26.7 % (20.0-45.0); MEAN CORPUSCULAR VOLUME 84 FL (80-99); MONOCYTES % (AUTO) 11.4 % (1.0-10.0); PLATELET COUNT 182 K/UL (150-450); RED CELL DISTRIBUTION WIDTH 11.7 % (11.6-14.8)
--- NOTE | 2019-10-29 12:51 | NUR ---
ED Nurse Note: Pt. aaox4. ambulatory. Pt walked in c/o being medically cleared to go to [facility] for psych care. Pt stated he cannot stop smoking and feeling like he want to run into traffic. No prior attempts. all belongings were taken and placed in a locker.
[2019-10-29 13:05] VITALS: BP 129/77
--- NOTE | 2019-10-29 14:56 | NUR ---
ED Nurse Note: Pt able to walk to the restroom with steady gait.
[2019-10-29 15:30] VITALS: BP 131/79
--- NOTE | 2019-10-29 16:03 | NUR ---
ED Nurse Note: Snacks provided.
[2019-10-29 17:15] VITALS: BP 125/80
--- NOTE | 2019-10-29 17:15 | NUR ---
ED Nurse Note: Pt cleared by ERMD for discharge. DC instructions was given and explained to pt and verbalized understanding of teachings. All medical deviecs such as ID band and IV line removed. Pt is AAO x4, ambulatory and left with all personal belongings.
== END 2019-10-29 17:15 | disposition home or self-care (01) ==
LOC: EMR 11:10
DX: R45.851 Suicidal ideations (principal); F20.9 Schizophrenia, unspecified
CPT/HCPCS: 36415; 80053; 80307; 85025; 99284; G0480

== ENCOUNTER → 2019-11-02 | Emergency (ER) | payer MEDICARE, OTHER ==
[~2019-11-02] VITALS: Ht 175.3 cm; Wt 81.6 kg
[2019-11-02 17:00] VITALS: BP 118/78
--- NOTE | 2019-11-02 17:10 | NUR ---
ED Nurse Note: Blood drawn, urine collected; sent to labs.
[2019-11-02 17:35] LABS: ANION GAP 9 mmol/L (5-15); BLOOD UREA NITROGEN 7 mg/dL (7-18); CALCIUM 9.2 MG/DL (8.5-10.1); CARBON DIOXIDE 28 MMOL/L (21-32); CHLORIDE 104 MMOL/L (98-107); CREATININE 0.8 MG/DL (0.55-1.30); POTASSIUM 4.1 MMOL/L (3.5-5.1); SODIUM 140 MMOL/L (136-145)
[2019-11-02 17:36] LABS: BASOPHILS % (AUTO) 1.8 % (0.0-2.0); EOSINOPHILS % (AUTO) 9.4 % (0.0-3.0); HEMATOCRIT 45.7 % (42.0-52.0); HEMOGLOBIN 15.4 G/DL (14.2-18.0); LYMPHOCYTES % (AUTO) 32.4 % (20.0-45.0); MEAN CORPUSCULAR VOLUME 87 FL (80-99); MONOCYTES % (AUTO) 7.4 % (1.0-10.0); PLATELET COUNT 242 K/UL (150-450); RED BLOOD COUNT 5.26 M/UL (4.70-6.10); RED CELL DISTRIBUTION WIDTH 13.2 % (11.6-14.8); WHITE BLOOD COUNT 7.9 K/UL (4.8-10.8)
[2019-11-02 17:39] LABS: ALANINE AMINOTRANSFERASE 20 U/L (12-78); ALBUMIN 4.2 G/DL (3.4-5.0); ALBUMIN/GLOBULIN RATIO 1.2 (1.0-2.7); ALKALINE PHOSPHATASE 88 U/L (46-116); ASPARTATE AMINO TRANSFERASE 18 U/L (15-37); BILIRUBIN,TOTAL 0.4 MG/DL (0.2-1.0)
--- NOTE | 2019-11-02 17:58 | Emergency Room Report ---
History of Present Illness General Chief Complaint: Medical Clearance Source: Patient (Elsa Bo) Present Illness HPI 29 YO Male requesting medical clearance and transfer to [facility] for chronic SI. He reports SI but denies having a plan. He reports he has already been accepted at [facility]. Pt. has been taking his medications ( Risperdal). He denies symptoms such as pain, cough, SOB, palpitations, AMS, dizziness, ANTOINE , Fevers or chills. He reports marijuana use. He states he takes Risperdal. He denies auditory or visual hallucinations. Denies episodes of eusebia. He denies anxiety symptoms. (Elsa Bo) Allergies: Coded Allergies: No Known Allergies (Unverified , 11/14/13) COVID-19 Screening Contact w/high risk pt: No Recent Travel to affected area: No Experienced COVID-19 symptoms?: No (Elsa Bo) Patient History Past Medical History: psych hx Past Surgical History: none Social History: Reports: drug use Reviewed Nursing Documentation: PMH: Agreed; PSxH: Agreed (Elsa Bo) Nursing Documentation-PMH Hx Cardiac Problems: No Hx Hypertension: No Hx Pacemaker: No Hx Asthma: No Hx COPD: No Hx Diabetes: No Hx Cancer: No Hx Gastrointestinal Problems: No Hx Dialysis: No History Of Psychiatric Problem: Yes - schizo ,bi-polar Hx Neurological Problems: No Hx Cerebrovascular Accident: No Hx Seizures: No (Elsa Bo) Review of Systems All Other Systems: negative except mentioned in HPI (Elsa Bo) Physical Exam Vital Signs Date Time Temp Pulse Resp B/P (MAP) Pulse Ox O2 Delivery O2 Flow Rate FiO2 11/02/19 16:54 98.1 86 18 118/78 (91) 98 Room Air Sp02 EP Interpretation: reviewed, normal General Appearance: no apparent distress, alert, GCS 15, non-toxic Head: normocephalic, atraumatic Eyes: bilateral eye normal inspection, bilateral eye PERRL ENT: hearing grossly normal, normal voice Neck: full range of motion Respiratory: chest non-tender, lungs clear, normal breath sounds, speaking full sentences Cardiovascular #1: regular rate, rhythm Gastrointestinal: normal bowel sounds, non tender, soft Musculoskeletal: normal range of motion, gait/station normal, non-tender Neurologic: alert, motor strength/tone normal, oriented x3, sensory intact, responsive, speech normal Psychiatric: judgement/insight normal, memory normal, mood/affect normal, no suicidal/homicidal ideation - NO plan Skin: normal color, normal inspection (Elsa Bo) Medical Decision Making PA Attestation Dr. Urbina is my supervising Physician whom patient management has been discussed with. (Elsa Bo) PA Attestation I participate in the care of this patient along with MARSHA Faith Briefly, this a 29-year-old male history of psychiatric disorder presenting with suicidal ideation. Patient seen in the emergency part multiple times with similar complaints. He is requesting medical clearance prior to admission at [facility]. Labs were obtained without significant findings. Patient is medically cleared for transfer. He has been accepted to [facility] and we will arrange transport. Patient is in stable condition. (Alec Urbina MD) Diagnostic Impression: Primary Impression: Medical clearance for psychiatric admission ER Course 29 YO Male requesting medical clearance and transfer to [facility] for chronic SI. He reports SI but denies having a plan. He reports he has already been accepted at [facility]. Pt. has been taking his medications ( Risperdal). He denies symptoms such as pain, cough, SOB, palpitations, AMS, dizziness, ANTOINE , Fevers or chills. He reports marijuana use. He states he takes Risperdal. He denies auditory or visual hallucinations. Denies episodes of eusebia. He denies anxiety symptoms. Pt. is well known to this ED for habitually presenting requesting medical clearance and transfer to [facility] for chronic SI. Ddx considered but are not limited to OD, SI/HI, psychosis, UTI, intoxication Vital signs: are WNL, pt. is afebrile H&PE are most consistent with behavioral/mental health issue- chronic in presentation without deviation from previous ED visit presentations. ORDERS: -CBC, CMP: WNL -UA: negative for infection see results attached. -UDS: Positive for THC -Salicylates and Acetaminophen - no acute intoxication. ED INTERVENTIONS: - None required at this time. DISPOSITION: Medically cleared for Psychiatric EVALUATION. Pt. has been accepted at [facility]. Labs Test 4/7/20 17:10 White Blood Count 7.9 K/UL (4.8-10.8) Red Blood Count 5.26 M/UL (4.70-6.10) Hemoglobin 15.4 G/DL (14.2-18.0) Hematocrit 45.7 % (42.0-52.0) Mean Corpuscular Volume 87 FL (80-99) Mean Corpuscular Hemoglobin 29.4 PG (27.0-31.0) Mean Corpuscular Hemoglobin Concent 33.8 G/DL (32.0-36.0) Red Cell Distribution Width 13.2 % (11.6-14.8) Platelet Count 242 K/UL (150-450) Mean Platelet Volume 8.2 FL (6.5-10.1) Neutrophils (%) (Auto) 49.0 % (45.0-75.0) Lymphocytes (%) (Auto) 32.4 % (20.0-45.0) Monocytes (%) (Auto) 7.4 % (1.0-10.0) Eosinophils (%) (Auto) 9.4 % (0.0-3.0) Basophils (%) (Auto) 1.8 % (0.0-2.0) Sodium Level 140 MMOL/L (136-145) Potassium Level 4.1 MMOL/L (3.5-5.1) Chloride Level 104 MMOL/L (98-107) Carbon Dioxide Level 28 MMOL/L (21-32) Anion Gap 9 mmol/L (5-15) Blood Urea Nitrogen 7 mg/dL (7-18) Creatinine 0.8 MG/DL (0.55-1.30) Estimat Glomerular Filtration Rate > 60 mL/min (>60) Glucose Level 99 MG/DL (74-106) Calcium Level 9.2 MG/DL (8.5-10.1) Total Bilirubin 0.4 MG/DL (0.2-1.0) Aspartate Amino Transf (AST/SGOT) 18 U/L (15-37) Alanine Aminotransferase (ALT/SGPT) 20 U/L (12-78) Alkaline Phosphatase 88 U/L (46-116) Total Protein 7.8 G/DL (6.4-8.2) Albumin 4.2 G/DL (3.4-5.0) Globulin 3.6 g/dL Albumin/Globulin Ratio 1.2 (1.0-2.7) Salicylates Level 3.5 ug/mL (2.8-20) Urine Opiates Screen Negative (NEGATIVE) Acetaminophen Level < 2 MCG/ML (10-30) Urine Barbiturates Screen Negative (NEGATIVE) Phencyclidine (PCP) Screen Negative (NEGATIVE) Urine Amphetamines Screen Negative (NEGATIVE) Urine Benzodiazepines Screen Negative (NEGATIVE) Urine Cocaine Screen Negative (NEGATIVE) Urine Marijuana (THC) Screen Positive (NEGATIVE) Serum Alcohol < 3 mg/dL (Elsa Bo) Last Vital Signs Date Time Temp Pulse Resp B/P (MAP) Pulse Ox O2 Delivery O2 Flow Rate FiO2 11/02/19 17:00 86 18 Room Air 11/02/19 17:00 98.1 118/78 98 (Elsa Bo) Disposition: PSYCH HOSP/UNIT Condition: Stable Referrals: NOT CHOSEN IPA/MD,REFERRING (PCP) Patient Instructions: Suicidal Feelings: How to Help Yourself Additional Instructions: The emergency Dept. Has determined that you are medically cleared to have voluntary psychiatric evaluation and admission if necessary. Take any previously prescribed medications as directed. Follow up with a Primary Care Provider in 3-5 days, even if your symptoms have resolved. Return sooner to ED if new symptoms occur, or current symptoms become worse. - Please note that this Emergency Department Report was dictated using [employer]riumvocational nursing instructor technology software, occasionally this can lead to erroneous entry secondary to interpretation by the dictation equipment. Elsa Bo Nov 02, 2019 17:58 Alec Urbina MD Nov 02, 2019 19:07
[2019-11-02 20:15] VITALS: BP 132/80
== END ==
LOC: EMR 16:10
DX: R45.851 Suicidal ideations (principal); F12.90 Cannabis use, unspecified, uncomplicated; F31.9 Bipolar disorder, unspecified; F20.9 Schizophrenia, unspecified
CPT/HCPCS: 36415; 80053; 80307; 85025; 99284; G0480

== ENCOUNTER 2019-11-16 22:44 | Emergency (ER) | payer MEDICARE, OTHER ==
[~2019-11-16] VITALS: Ht 175.3 cm; Wt 81.6 kg
--- NOTE | 2019-11-16 23:01 | Emergency Room Report ---
History of Present Illness General Chief Complaint: Medical Clearance Source: Patient Present Illness HPI This is a 29-year-old male with a history of schizophrenia/schizoaffective disorder who presents with chief complaint of hearing voices and feeling suicidal. He said that he wanted medical clearance for psychiatric admission. He has been here numerous times for the same thing. He is chronically suicidal. He has no particular plan. He said he still hearing voices. No help with his Risperdal. He claimed that his trigger is the of his mom a month ago. No homicidal thoughts. No delusion. Allergies: Coded Allergies: No Known Allergies (Unverified , 11/14/13) Patient History Past Medical History: see triage record, old chart reviewed Past Surgical History: other Family History: none Social History: other Immunizations: other Reviewed Nursing Documentation: PMH: Agreed; PSxH: Agreed Nursing Documentation-PMH Hx Cardiac Problems: No Hx Hypertension: No Hx Pacemaker: No Hx Asthma: No Hx COPD: No Hx Diabetes: No Hx Cancer: No Hx Gastrointestinal Problems: No Hx Dialysis: No History Of Psychiatric Problem: Yes - schizophrenia Hx Neurological Problems: No Hx Cerebrovascular Accident: No Hx Seizures: No Review of Systems ENT: Denies: sore throat Cardiovascular: Denies: chest pain, palpitations Gastrointestinal/Abdominal: Denies: nausea, vomiting, diarrhea Musculoskeletal: Denies: back problems Skin: Denies: rash Psychiatric: Reports: prior history, suicidal/homicidal ideations Neurological: Denies: ANTOINE, seizures All Other Systems: negative except mentioned in HPI Physical Exam Vital Signs Date Time Temp Pulse Resp B/P (MAP) Pulse Ox O2 Delivery O2 Flow Rate FiO2 11/16/19 22:54 97.9 108 20 122/65 (84) 95 Room Air Vitals normal Sp02 EP Interpretation: reviewed, normal General Appearance: alert/responsive, no apparent distress, non-toxic Head: normocephalic, atraumatic Eyes: PERRL, EOMI ENT: oropharynx normal Neck: supple/symm/no masses Respiratory: effort normal, no rhonchi, no wheezing Cardiovascular: no murmur, gallop, rub Gastrointestinal: non-tender, no mass, non-distended, no rebound/guarding, normal bowel sounds Musculoskeletal: gait & station normal Neurologic: oriented x3, sensory intact, motor strength/tone normal Skin: no rash, normal palpation Medical Decision Making Diagnostic Impression: Primary Impression: Schizo-affective schizophrenia, chronic condition ER Course Patient here with his exacerbation of his schizophrenia. This is a chronic issue. He wanted medical clearance for admission. As I was taking history from patient, there was a CODE BLUE in the ICU. I responded to code and when I came back down he left. Patient was calm. This is a chronic issue for him. Last Vital Signs Date Time Temp Pulse Resp B/P (MAP) Pulse Ox O2 Delivery O2 Flow Rate FiO2 11/16/19 22:54 97.9 108 20 122/65 (84) 95 Room Air Status: unchanged Disposition: ELOPED Condition: Stable Referrals: NOT CHOSEN IPA/,REFERRING (PCP) Luc Self MD Nov 16, 2019 23:01
[2019-11-16 23:03] VITALS: BP 122/65
== END 2019-11-16 23:00 | disposition left against medical advice (07) ==
LOC: EMR 22:56
DX: F25.9 Schizoaffective disorder, unspecified (principal); R45.851 Suicidal ideations
CPT/HCPCS: 99281

== ENCOUNTER 2019-12-26 09:08 | Emergency (ER) | payer MEDICARE, OTHER ==
[~2019-12-26] VITALS: Ht 175.3 cm; Wt 81.6 kg
--- NOTE | 2019-12-26 09:24 | Emergency Room Report ---
History of Present Illness General Chief Complaint: Medical Clearance Source: Patient Present Illness HPI Disclaimer: Please note that this report is being documented using Real[employer] technology. This can lead to erroneous entry secondary to incorrect interpretation by the dictating instrument. HPI: 29-year-old male with schizophrenia presents for evaluation of auditory hallucinations and requesting medical clearance prior to psychiatric placement. The patient states he has been hearing voices talking about assassination though he is nonspecific. No improvement after receiving Risperdal. The patient states he needs medical clearance prior to being transferred to [facility] where he has been seen multiple times in the past. Patient states he feels somewhat suicidal but has no specific plan. This is a chronic issue for the patient has been seen at this emergency department multiple times for similar complaints. No other issues reported at this time. PMH: Schizophrenia PSH: Reviewed Allergies: None reported Social Hx: Denies Allergies: Coded Allergies: No Known Allergies (Unverified , 11/14/13) COVID-19 Screening Contact w/high risk pt: No Recent Travel to affected area: No Experienced COVID-19 symptoms?: No COVID-19 Testing performed TYPEWRITER MECHANIC: No Nursing Documentation-PMH Past Medical History: No Stated History Hx Cardiac Problems: No Hx Hypertension: No Hx Pacemaker: No Hx Asthma: No Hx COPD: No Hx Diabetes: No Hx Cancer: No Hx Gastrointestinal Problems: No Hx Dialysis: No Hx Neurological Problems: No Hx Cerebrovascular Accident: No Hx Seizures: No Review of Systems All Other Systems: negative except mentioned in HPI Physical Exam Vital Signs Date Time Temp Pulse Resp B/P (MAP) Pulse Ox O2 Delivery O2 Flow Rate FiO2 12/26/19 09:13 98.2 83 18 109/75 (86) 99 Room Air General: Awake and alert, no acute distress HEENT: NC/AT. EOMI. Cardiovascular: RRR. S1 and S2 normal. No murmur appreciated Resp: Normal work of breathing. No cough, wheezing or crackles appreciated Abdomen: Abdomen is soft, nondistended. Nontender Skin: Intact. No abrasions, laceration or rash over the exposed skin MSK: Normal tone and bulk. Moving all extremities. No obvious deformity. Neuro: Awake and alert. Mentating appropriately. Medical Decision Making Diagnostic Impression: Primary Impression: Schizo-affective schizophrenia, chronic condition Additional Impression: Auditory hallucinations ER Course There is a 29-year-old male history of schizophrenia presenting for medical clearance prior to psychiatric evaluation for auditory hallucinations. Patient states he is already been accepted to [facility]. Will obtain labs and disposition psychiatric clearance. Not actively suicidal at this time. 1020: Labs have returned within normal limits. The patient is medically cleared for psychiatric evaluation. He has been accepted at the [facility]. Will arrange transport. Patient is stable for transfer. Laboratory Tests Test 12/26/19 09:30 White Blood Count 6.6 K/UL (4.8-10.8) Red Blood Count 5.33 M/UL (4.70-6.10) Hemoglobin 15.7 G/DL (14.2-18.0) Hematocrit 43.7 % (42.0-52.0) Mean Corpuscular Volume 82 FL (80-99) Mean Corpuscular Hemoglobin 29.5 PG (27.0-31.0) Mean Corpuscular Hemoglobin Concent 36.0 G/DL (32.0-36.0) Red Cell Distribution Width 11.2 % (11.6-14.8) L Platelet Count 214 K/UL (150-450) Mean Platelet Volume 7.3 FL (6.5-10.1) Neutrophils (%) (Auto) 52.8 % (45.0-75.0) Lymphocytes (%) (Auto) 27.6 % (20.0-45.0) Monocytes (%) (Auto) 6.7 % (1.0-10.0) Eosinophils (%) (Auto) 11.8 % (0.0-3.0) H Basophils (%) (Auto) 1.2 % (0.0-2.0) Urine Color Yellow Urine Appearance Clear Urine pH 6 (4.5-8.0) Urine Specific Enders 1.020 (1.005-1.035) Urine Protein Negative (NEGATIVE) Urine Glucose (UA) Negative (NEGATIVE) Urine Ketones 3+ (NEGATIVE) H Urine Blood Negative (NEGATIVE) Urine Nitrite Negative (NEGATIVE) Urine Bilirubin Negative (NEGATIVE) Urine Urobilinogen Normal MG/DL (0.0-1.0) Urine Leukocyte Esterase Negative (NEGATIVE) Sodium Level 141 MMOL/L (136-145) Potassium Level 4.1 MMOL/L (3.5-5.1) Chloride Level 104 MMOL/L (98-107) Carbon Dioxide Level 31 MMOL/L (21-32) Anion Gap 7 mmol/L (5-15) Blood Urea Nitrogen 11 mg/dL (7-18) Creatinine 1.0 MG/DL (0.55-1.30) Estimated Glomerular Filtration Rate > 60 mL/min (>60) Glucose Level 109 MG/DL (74-106) H Calcium Level 9.0 MG/DL (8.5-10.1) Total Bilirubin 0.6 MG/DL (0.2-1.0) Aspartate Amino Transferase (AST) 24 U/L (15-37) Alanine Aminotransferase (ALT) 26 U/L (12-78) Alkaline Phosphatase 96 U/L (46-116) Total Protein 7.6 G/DL (6.4-8.2) Albumin 4.0 G/DL (3.4-5.0) Globulin 3.6 g/dL Albumin/Globulin Ratio 1.1 (1.0-2.7) Salicylates Level 2.9 ug/mL (2.8-20) Urine Opiates Screen Negative (NEGATIVE) Acetaminophen Level < 2 MCG/ML (10-30) L Urine Barbiturates Screen Negative (NEGATIVE) Phencyclidine (PCP) Screen Negative (NEGATIVE) Urine Amphetamines Screen Negative (NEGATIVE) Urine Benzodiazepines Screen Negative (NEGATIVE) Urine Cocaine Screen Negative (NEGATIVE) Urine Marijuana (THC) Screen Negative (NEGATIVE) Serum Alcohol < 3 mg/dL Last Vital Signs Date Time Temp Pulse Resp B/P (MAP) Pulse Ox O2 Delivery O2 Flow Rate FiO2 12/26/19 09:13 98.2 83 18 109/75 (86) 99 Room Air Disposition: SHORT-TERM HOSP Condition: Stable Alec Urbina MD December 26, 2019 09:24
[2019-12-26 09:34] VITALS: BP 117/79
[2019-12-26 09:57] LABS: APPEARANCE,URINE CLEAR; BILIRUBIN, URINE NEGATIVE (NEGATIVE); GLUCOSE, URINE (UA) NEGATIVE (NEGATIVE); KETONES,URINE 3+ (NEGATIVE); LEUKOCYTE ESTERASE ,URINE NEGATIVE (NEGATIVE); NITRITE,URINE NEGATIVE (NEGATIVE); PH,URINE 6 (4.5-8.0); PROTEIN,URINE NEGATIVE (NEGATIVE); UROBILINOGEN,URINE NORMAL MG/DL (0.0-1.0)
[2019-12-26 09:58] LABS: BASOPHILS % (AUTO) 1.2 % (0.0-2.0); EOSINOPHILS % (AUTO) 11.8 % (0.0-3.0); HEMATOCRIT 43.7 % (42.0-52.0); HEMOGLOBIN 15.7 G/DL (14.2-18.0); LYMPHOCYTES % (AUTO) 27.6 % (20.0-45.0); MEAN CORPUSCULAR VOLUME 82 FL (80-99); MONOCYTES % (AUTO) 6.7 % (1.0-10.0); NEUTROPHILS % (AUTO) 52.8 % (45.0-75.0); PLATELET COUNT 214 K/UL (150-450); RED BLOOD COUNT 5.33 M/UL (4.70-6.10); RED CELL DISTRIBUTION WIDTH 11.2 % (11.6-14.8); WHITE BLOOD COUNT 6.6 K/UL (4.8-10.8)
[2019-12-26 10:08] LABS: ANION GAP 7 mmol/L (5-15); BLOOD UREA NITROGEN 11 mg/dL (7-18); CARBON DIOXIDE 31 MMOL/L (21-32); CHLORIDE 104 MMOL/L (98-107); COLOR,URINE YELLOW; POTASSIUM 4.1 MMOL/L (3.5-5.1); SODIUM 141 MMOL/L (136-145)
[2019-12-26 10:13] LABS: ALANINE AMINOTRANSFERASE 26 U/L (12-78); ALBUMIN/GLOBULIN RATIO 1.1 (1.0-2.7); ALKALINE PHOSPHATASE 96 U/L (46-116); ASPARTATE AMINO TRANSFERASE 24 U/L (15-37); BILIRUBIN,TOTAL 0.6 MG/DL (0.2-1.0)
[2019-12-26 11:20] VITALS: BP 124/81
[2019-12-26 13:50] VITALS: BP 121/84
== END 2019-12-26 13:50 | disposition short-term general hospital (02) ==
LOC: EMR 09:30
DX: F25.9 Schizoaffective disorder, unspecified (principal); R44.0 Auditory hallucinations; R45.851 Suicidal ideations
CPT/HCPCS: 36415; 80053; 80307; 81003; 85025; 99284; G0480

== ENCOUNTER 2020-02-29 12:53 | Emergency (ER) | payer MEDICARE, OTHER ==
[~2020-02-29] VITALS: Ht 175.3 cm; Wt 90.7 kg
[2020-02-29 13:50] VITALS: BP 124/78
--- NOTE | 2020-02-29 14:28 | Emergency Room Report ---
History of Present Illness General Chief Complaint: Behavioral Complaint Source: Patient (Elsa Bo) Present Illness HPI 30-year-old male with history of schizoaffective disorder presents to the emergency department complaining of auditory hallucinations. Patient reports voices talking gibberish in the background he denies any specific instructions from these voices. Patient reports he self discontinued his psychiatric medication respite all several months ago. Patient reports multiple previous psychiatric hospitalizations and he estimates over 10. He denies PSAs. Patient states he is requesting medical clearance so he can go to a psychiatric hospital that is already verbalized that they will accept him. Patient reports that they told him he just needs medical clearance first. Patient denies SI or HI at this time. He denies access to firearms. He denies illicit drug use. He denies chest pain, shortness of breath or pain anywhere else in the body. Pt. is well known to this emergency department and presents monthly with the same complaint and requests. He habitually admits to being non-compliant with medications. (Elsa Bo) Allergies: Coded Allergies: No Known Allergies (Unverified , 11/14/13) COVID-19 Screening Contact w/high risk pt: No Recent Travel to affected area: No Experienced COVID-19 symptoms?: No COVID-19 Testing performed SPAR FINISHER: No (Elsa Bo) Patient History Past Medical History: see triage record, psych hx Past Surgical History: none Pertinent Family History: none Reviewed Nursing Documentation: PMH: Agreed; PSxH: Agreed (Elsa Bo) Nursing Documentation-PMH Past Medical History: No History, Except For Hx Cardiac Problems: No Hx Hypertension: No Hx Pacemaker: No Hx Asthma: No Hx COPD: No Hx Diabetes: No Hx Cancer: No Hx Gastrointestinal Problems: No Hx Dialysis: No History Of Psychiatric Problem: Yes - Schizophrenia Hx Neurological Problems: No Hx Cerebrovascular Accident: No Hx Seizures: No (Elsa Bo) Review of Systems All Other Systems: negative except mentioned in HPI (Elsa Bo) Physical Exam Vital Signs Date Time Temp Pulse Resp B/P (MAP) Pulse Ox O2 Delivery O2 Flow Rate FiO2 02/29/20 13:37 98.4 84 17 117/72 (87) 98 Room Air Sp02 EP Interpretation: reviewed, normal General Appearance: no apparent distress, alert, GCS 15, non-toxic Head: normocephalic, atraumatic Eyes: bilateral eye normal inspection, bilateral eye PERRL ENT: hearing grossly normal, normal voice Neck: full range of motion Respiratory: chest non-tender, lungs clear, normal breath sounds, no respiratory distress, no wheezing, speaking full sentences Cardiovascular #1: regular rate, rhythm Gastrointestinal: normal bowel sounds, non tender, soft Musculoskeletal: back normal, normal range of motion, gait/station normal, non- tender Neurologic: alert, motor strength/tone normal, oriented x3, sensory intact, responsive, speech normal Psychiatric: judgement/insight normal Skin: no rash, normal color (Elsa Bo) Medical Decision Making PA Attestation Dr. Stewart Is my supervising Physician whom patient management has been discussed with. (Elsa Bo) Diagnostic Impression: Primary Impression: Medical clearance for psychiatric admission ER Course 30-year-old male with history of schizoaffective disorder presents to the emergency department complaining of auditory hallucinations. Patient reports voices talking gibberish in the background he denies any specific instructions from these voices. Patient reports he self discontinued his psychiatric medication respite all several months ago. Patient reports multiple previous psychiatric hospitalizations and he estimates over 10. He denies PSAs. Patient states he is requesting medical clearance so he can go to a psychiatric hospital that is already verbalized that they will accept him. Patient reports that they told him he just needs medical clearance first. Patient denies SI or HI at this time. He denies access to firearms. He denies illicit drug use. He denies chest pain, shortness of breath or pain anywhere else in the body. Pt. is well known to this emergency department and presents monthly with the same complaint and requests. He habitually admits to being non-compliant with medications. Pt is very calm and cooperative. He is involved with his medical care and already has hospital acceptance and is in contact with facility. Ddx considered but are not limited to OD, SI/HI, psychosis, UTI, intoxication Vital signs: are WNL, pt. is afebrile H&PE are most consistent with behavioral/mental health issue--- not acute, chronic presentation. Patient is nontoxic in appearance, and in no acute distress, does not demonstrate danger to himself or others. Patient frequents this emergency department monthly. Habitually noncompliant with his medications. ORDERS: -CBC, CMP -UA: negative for infection see results attached. -UDS: -Salicylates and Acetaminophen - no acute intoxication. ED INTERVENTIONS: - Risperdal 2mg =---Pt. then declined after requesting it. DISPOSITION: Pt. medically cleared for voluntary psychiatric hospitalization. He is awaiting ambulance transport which is delayed. Labs Test 02/29/20 14:19 02/29/20 14:36 White Blood Count 6.2 K/UL (4.8-10.8) Red Blood Count 5.47 M/UL (4.70-6.10) Hemoglobin 15.7 G/DL (14.2-18.0) Hematocrit 48.0 % (42.0-52.0) Mean Corpuscular Volume 88 FL (80-99) Mean Corpuscular Hemoglobin 28.7 PG (27.0-31.0) Mean Corpuscular Hemoglobin Concent 32.6 G/DL (32.0-36.0) Red Cell Distribution Width 12.5 % (11.6-14.8) Platelet Count 233 K/UL (150-450) Mean Platelet Volume 7.5 FL (6.5-10.1) Neutrophils (%) (Auto) 52.9 % (45.0-75.0) Lymphocytes (%) (Auto) 30.2 % (20.0-45.0) Monocytes (%) (Auto) 7.6 % (1.0-10.0) Eosinophils (%) (Auto) 7.5 % (0.0-3.0) Basophils (%) (Auto) 1.8 % (0.0-2.0) Sodium Level 139 MMOL/L (136-145) Potassium Level 3.8 MMOL/L (3.5-5.1) Chloride Level 104 MMOL/L (98-107) Carbon Dioxide Level 28 MMOL/L (21-32) Anion Gap 7 mmol/L (5-15) Blood Urea Nitrogen 8 mg/dL (7-18) Creatinine 0.8 MG/DL (0.55-1.30) Estimat Glomerular Filtration Rate > 60 mL/min (>60) Glucose Level 88 MG/DL (74-106) Calcium Level 9.2 MG/DL (8.5-10.1) Total Bilirubin 0.4 MG/DL (0.2-1.0) Aspartate Amino Transf (AST/SGOT) 15 U/L (15-37) Alanine Aminotransferase (ALT/SGPT) 24 U/L (12-78) Alkaline Phosphatase 98 U/L (46-116) Total Protein 8.1 G/DL (6.4-8.2) Albumin 4.2 G/DL (3.4-5.0) Globulin 3.9 g/dL Albumin/Globulin Ratio 1.1 (1.0-2.7) Salicylates Level 2.5 ug/mL (2.8-20) Acetaminophen Level < 2 MCG/ML (10-30) Serum Alcohol < 3 mg/dL Urine Opiates Screen Negative (NEGATIVE) Urine Barbiturates Screen Negative (NEGATIVE) Phencyclidine (PCP) Screen Negative (NEGATIVE) Urine Amphetamines Screen Negative (NEGATIVE) Urine Benzodiazepines Screen Negative (NEGATIVE) Urine Cocaine Screen Negative (NEGATIVE) Urine Marijuana (THC) Screen Negative (NEGATIVE) (Elsa Bo) ER Course Please see above note. I agree with assessment and treatment plan. (Negro Stewart MD) Last Vital Signs Date Time Temp Pulse Resp B/P (MAP) Pulse Ox O2 Delivery O2 Flow Rate FiO2 02/29/20 13:37 98.4 84 17 117/72 (87) 98 Room Air (Elsa Bo) Disposition: PSYCH HOSP/UNIT Condition: Stable Scripts Risperidone* (RISPERDAL*) 2 Mg Tablet 2 MG ORAL DAILY for 7 Days, #7 TAB 0 Refills Prov: Elsa Bo 02/29/20 Referrals: [facility] Patient Instructions: Risperidone tablets Additional Instructions: You have been medically cleared for voluntary psychiatric program. Take medications as directed. Follow up with a Mental Health Specialist/ Psychiatrist in 3 days, even if your symptoms have resolved. --Please review [facility] resource information provided Return sooner to ED if new symptoms occur, or current symptoms become worse. - Please note that this Emergency Department Report was dictated using Truly[employer]ometric tech technology software, occasionally this can lead to erroneous entry secondary to interpretation by the dictation equipment. Elsa Bo Feb 29, 2020 14:28 Negro Stewart MD Mar 01, 2020 01:16
[2020-02-29 14:37] LABS: BASOPHILS % (AUTO) 1.8 % (0.0-2.0); EOSINOPHILS % (AUTO) 7.5 % (0.0-3.0); HEMOGLOBIN 15.7 G/DL (14.2-18.0); LYMPHOCYTES % (AUTO) 30.2 % (20.0-45.0); MEAN CORPUSCULAR VOLUME 88 FL (80-99); MONOCYTES % (AUTO) 7.6 % (1.0-10.0); NEUTROPHILS % (AUTO) 52.9 % (45.0-75.0); PLATELET COUNT 233 K/UL (150-450); RED BLOOD COUNT 5.47 M/UL (4.70-6.10); RED CELL DISTRIBUTION WIDTH 12.5 % (11.6-14.8); WHITE BLOOD COUNT 6.2 K/UL (4.8-10.8)
[2020-02-29 14:53] LABS: ANION GAP 7 mmol/L (5-15); BLOOD UREA NITROGEN 8 mg/dL (7-18); CALCIUM 9.2 MG/DL (8.5-10.1); CARBON DIOXIDE 28 MMOL/L (21-32); CHLORIDE 104 MMOL/L (98-107); CREATININE 0.8 MG/DL (0.55-1.30); POTASSIUM 3.8 MMOL/L (3.5-5.1); SODIUM 139 MMOL/L (136-145)
[2020-02-29 14:58] LABS: ALANINE AMINOTRANSFERASE 24 U/L (12-78); ALBUMIN 4.2 G/DL (3.4-5.0); ALBUMIN/GLOBULIN RATIO 1.1 (1.0-2.7); ALKALINE PHOSPHATASE 98 U/L (46-116); ASPARTATE AMINO TRANSFERASE 15 U/L (15-37); BILIRUBIN,TOTAL 0.4 MG/DL (0.2-1.0)
[2020-02-29] MEDS ORDERED: RISPERDAL2 MG ORAL (15:56)
[2020-02-29 16:42] VITALS: BP 110/69
[2020-02-29 20:26] VITALS: BP 105/56
== END 2020-02-29 20:24 ==
LOC: EMR 14:00
DX: R44.0 Auditory hallucinations (principal); F20.9 Schizophrenia, unspecified
CPT/HCPCS: 36415; 80053; 80307; 85025; 99283; G0480; U0002

== ENCOUNTER 2020-04-10 | Emergency (ER) | payer MEDICARE, OTHER ==
--- NOTE | 2020-04-10 00:05 | NUR ---
ED Nurse Note: patient not in waiting room. unable to triage
--- NOTE | 2020-04-10 00:19 | NUR ---
CALLED PATIENT 2X, PATIENT NOT IN WAITING ROOM.
--- NOTE | 2020-04-10 04:09 | Emergency Room Report ---
Medical Decision Making ER Course Patient was never seen as he eloped before ever coming into the emergency department. Disposition: LEFT W/OUT BEING SEEN Referrals: NOT CHOSEN IPA/,REFERRING (PCP) Anthony Long M.D. Apr 10, 2020 04:09
== END 2020-04-10 00:19 | disposition left against medical advice (07) ==
LOC: EMR 00:19
DX: Z53.21 Procedure and treatment not carried out due to patient leaving prior to being seen by health care provider (principal)

== ENCOUNTER 2020-04-15 13:32 | Emergency (ER) | payer MEDICARE, OTHER ==
[~2020-04-15] VITALS: Ht 175.3 cm; Wt 81.6 kg
[2020-04-15 13:45] VITALS: BP 113/78
[2020-04-15 14:00] VITALS: BP 113/78
--- NOTE | 2020-04-15 14:13 | Emergency Room Report ---
History of Present Illness General Chief Complaint: Pain Source: Patient Present Illness HPI This pt. Eloped as I was approaching him for his evaluation. Pt. stated he was "feeling better". "His foot pain was from doing increased walking lately". He reports he is "going to go take a tylenol".. I offered to order and administer a Tylenol to him here and take a look at his feet. Pt. respectfully declined and again reported that he "felt much better". He was asked about having HI/SI as he habitually comes here for hearing voices, and he mentioned in triage note of hearing voices today. Pt. denies having HI/SI. He also said "the voices aren't that bad today, he was here for his feet being really sore". Allergies: Coded Allergies: No Known Allergies (Unverified , 11/14/13) COVID-19 Screening Contact w/high risk pt: No Recent Travel to affected area: No Experienced COVID-19 symptoms?: No COVID-19 Testing performed LEAD INGOT MOLDER: Yes - 5 days COVID-19 Screening: Negative COVID-19 COVID-19 Testing Source: nasal Patient History Past Medical History: see triage record Nursing Documentation-PMH Past Medical History: No History, Except For Hx Cardiac Problems: No Hx Hypertension: No Hx Pacemaker: No Hx Asthma: No Hx COPD: No Hx Diabetes: No Hx Cancer: No Hx Gastrointestinal Problems: No Hx Dialysis: No History Of Psychiatric Problem: Yes - schizophrenia Hx Neurological Problems: No Hx Cerebrovascular Accident: No Hx Seizures: No Physical Exam Vital Signs Date Time Temp Pulse Resp B/P (MAP) Pulse Ox O2 Delivery O2 Flow Rate FiO2 04/15/20 13:35 98.2 98 17 113/78 (90) 99 Room Air Medical Decision Making PA Attestation Dr. Stewart is my supervising Physician whom patient management has been discussed with. Diagnostic Impression: Primary Impression: Foot pain, bilateral Additional Impression: Continuous auditory hallucinations ER Course This pt. Eloped as I was approaching him for his evaluation. Pt. stated he was "feeling better". "His foot pain was from doing increased walking lately". He reports he is "going to go take a tylenol".. I offered to order and administer a Tylenol to him here and take a look at his feet. Pt. respectfully declined and again reported that he "felt much better". He was asked about having HI/SI as he habitually comes here for hearing voices, and he mentioned in triage note of hearing voices today. Pt. denies having HI/SI. He also said "the voices aren't that bad today, he was here for his feet being really sore". Last Vital Signs Date Time Temp Pulse Resp B/P (MAP) Pulse Ox O2 Delivery O2 Flow Rate FiO2 04/15/20 13:35 98.2 98 17 113/78 (90) 99 Room Air Disposition: ELOPED Condition: Unknown Referrals: NOT CHOSEN IPA/,REFERRING (PCP) Elsa Bo Apr 15, 2020 14:13
[2020-04-16] MEDS ORDERED: TYLENOL EXTRA500 MG ORAL (22:50)
== END 2020-04-15 14:00 | disposition left against medical advice (07) ==
LOC: EMR 13:47
DX: M25.572 Pain in left ankle and joints of left foot (principal); M25.571 Pain in right ankle and joints of right foot; R44.0 Auditory hallucinations; F20.9 Schizophrenia, unspecified
CPT/HCPCS: 99281

== ENCOUNTER 2020-04-16 22:21 | Emergency (ER) | payer MEDICARE, OTHER ==
[~2020-04-16] VITALS: Ht 175.3 cm; Wt 81.6 kg
[2020-04-16 22:30] VITALS: BP 115/76
--- NOTE | 2020-04-16 22:32 | NUR ---
ED Nurse Note: Pt ambualted to ED from home c/o R foot pain 5/10 for several hours, pt denies any injury or numbness/tingling. Pt is A&OX4, VSS. Foot skin is intact, no deformity noted. pink skin and quick cap refill.
[2020-04-16] MEDS ORDERED: TYLENOL EXTRA500 MG ORAL (22:50)
[2020-04-16] MEDS ORDERED: Acetaminophen 500mg (ES) tab ORAL ONE (23:00)
[2020-04-16 23:20] VITALS: BP 132/90
--- NOTE | 2020-04-16 23:20 | NUR ---
ER DISCHARGE NOTE: Patient is cleared to be discharged per ERMD, pt is aox4, on room air, with stable vital signs. pt was given dc and prescription instructions, pt was able to verbalize understanding, pt id band removed. pt is able to ambulate with steady gait. pt took all belongings.
--- NOTE | 2020-04-17 02:22 | Emergency Room Report ---
History of Present Illness General Chief Complaint: Pain Source: Patient Present Illness HPI 30-year-old male presents with bilateral plantar foot pain (L>R)for unspecified amount of time. Patient was seen in the emergency department for similar complaint. States that the pain is worse with walking or weight bearing as he has "been doing too much" lately. Denies trauma, fever, chills, focal weakness, nausea, vomiting, chest pain, shortness of breath He secondarily complains of generalized headache and states "I might be dehydrated". States he did not drink enough water today. Denies vision changes, neck pain, rash, focal weakness, difficulty walking, or other symptoms He states that this headache is similar to previous headaches he has had in the past. No sudden thunderclap onset. Not worst of life. Located in the frontal forehead. Nonradiating The patient's symptoms were gradual onset, severity was moderate, duration since unspecified Quality: aching Past medical history: Denies Past surgical history: Denies Smoking: ++ Alcohol use: Denies Drug use: Denies Review of systems: CONST: No fevers or chills, No night sweats PULMONARY: No productive cough, No shortness of breath CARDIAC: No chest pain, No palpitations GI: No vomiting, No diarrhea , No melena_or_BRBPR : No dysuria, No hematuria, No discharge NEURO: No new_focal_weakness_or_numbness, No confusion, No vision changes 14 point Review of Systems is otherwise negative except per HPI Physical Exam: GENERAL: Awake_alert_ nontoxic, no acute distress Spo2 98% on RA -normal EYES: Extraocular muscles are intact. Conjunctivae clear. Lids without swelling. No nystagmus. PERRLA ENT: External nose and ear normal_in_appearance. Oropharynx clear. Head_atraumatic, Moist_oral_mucosa NECK: No JVD. No meningismus. No thyromegaly. Supple. Trachea midline RESP: Normal respiratory effort. Symmetric rise. No stridor. Clear_to_auscultation_No_rales_No_wheezes CARDIAC: Regular rhytm. No_significant pedal edema. ABDOMEN: Soft. Nondistended. Nontender_No_rebound_or_guarding. MSK: Normal muscle tone, without rigidity. Extremities without asymmetric deformity or swelling. Full range of motion in bilateral knees, ankles, And feet. Bilateral foot/ankle exam: No swelling / effusion appreciated, No significant pain with passive range of motion Lateral malleolus: no tenderness / swelling / ecchymoses Medial malleolus: no tenderness / swelling / ecchymoses Dorsalis pedis pulse: 2+ Capillary refill: <3 seconds in all toes All toes: full range of motion without any tenderness / swelling / deformity / evidence of infection Base of the fifth metatarsal: no tenderness / swelling / ecchymoses Navicular: no tenderness / swelling / ecchymoses Calcaneus: no tenderness / swelling / ecchymoses Arch of the foot: no tenderness / swelling / ecchymoses Midfoot: no tenderness / swelling / ecchymoses Strength of dorsal / plantar flexion: normal 5/5 SKIN: Warm and dry. No visible cyanosis or pallor NEUROLOGIC: Alert, oriented x3. Motor_and_sensation_grossly_intact. No truncal ataxia. Gait_normal Psych: Normal mood and affect, normal judgment and insight - COORDINATION OF CARE Case was discussed with: Patient Medical Decision Making/Plan: Patient is nontoxic and well-appearing. Afebrile. Suspect plantar fasciitis ve rsus foot pain from overuse injury. Tylenol was given with full relief of symptoms. Patient was also fed. Doubt fracture, dislocation, septic joint, osteomyelitis, DVT, or any other acute emergency. Differential for the patients headache includes primary headache (migraine, tension, cluster), DOUBT subarachnoid hemorrhage, intracranial mass / tumor, meningitis, encephalitis, increased intracranial pressure, mastoiditis, acute sinusitis, dural venous thrombosis, temporal arteritis, acute angle closure gl aucoma, among others. Headache not sudden and severe, not worst headache of life, no family hx of SAH, neurologically intact without any persistent vomiting. Not consistent with subarachnoid hemorrhage, dural venous thrombosis, increased intracranial pre ssure, or significant tumor at this time. Patient without meningismus, mastoid / sinus tenderness, altered mental status or seizure. Doubt subdural abscess, meningitis, encephalitis, mastoiditis. No significant trauma mechanism, not anticoagulated. No evidence of subdural / epidural hematoma. [place] CT head criteria negative. Given the patients presentation, and normal neurologic exam, advanced imaging of the head with CT was not felt to be necessary or indicated and not pursued after weighing the risks and benefits of radiation. Pertinent results reviewed with the patient. I educated the patient on the current treatment plan including the risks, benefits, and alternatives. I also discussed the extent and limitations of the current evaluation. The patient expressed understanding and agreement with plan. I recommended PMD follow-up within 1-2 days. Also advised that the patient return to the Emergency Department as soon as possible if they experience any new, persistent, or worsening symptoms. 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 COVID-19 Screening: Negative COVID-19 COVID-19 Testing Source: [facility] Past Medical History: No History, Except For Hx Cardiac Problems: No Hx Hypertension: No Hx Pacemaker: No Hx Asthma: No Hx COPD: No Hx Diabetes: No Hx Cancer: No Hx Gastrointestinal Problems: No Hx Dialysis: No Hx Neurological Problems: No Hx Cerebrovascular Accident: No Hx Seizures: No Physical Exam Vital Signs Date Time Temp Pulse Resp B/P (MAP) Pulse Ox O2 Delivery O2 Flow Rate FiO2 04/16/20 22:24 98.1 85 18 115/76 (89) 97 Room Air Sp02 EP Interpretation: reviewed, normal Medical Decision Making Diagnostic Impression: Primary Impression: Headache Additional Impression: Foot pain, bilateral Last Vital Signs Date Time Temp Pulse Resp B/P (MAP) Pulse Ox O2 Delivery O2 Flow Rate FiO2 04/16/20 23:20 98.2 70 18 132/90 98 Room Air Disposition: HOME, SELF-CARE Admit Decision Time: 22:48 Condition: Stable Scripts Acetaminophen* (TYLENOL EXTRA STRENGTH*) 500 Mg Tablet 500 MG ORAL Q8H PRN for Prn Headache/Temp > 101, #30 TAB 0 Refills Prov: Ximena Hilario D.O. 04/16/20 Referrals: NON PHYSICIAN (PCP) [facility] Arleen Rowe Comp. [facility] Patient Instructions: Foot Contusion, Bnca-am-Afcy Additional Instructions: Instructions for patient/liquid loader: Follow up with your physician in 1-2 days. Follow-up with your doctor sooner if your condition requires a more timely clinical reevaluation. Return to the emergency department immediately if you feel that your condition is worsening or if you have any new or concerning symptoms. Review your discharge instructions and take any prescriptions given as ins tructed. [facility] PROVIDES FREE OR LOW-COST HEALTH SERVICES TO PEOPLE WHO CAN SHOW PROOF THAT THEY LIVE IN [facility]. TO FIND MORE CLINICS PARTNERED WITH [facility] TO PROVIDE SERVICE, PLEASE CALL . Ximena Hilario D.O. Apr 17, 2020 02:22
== END 2020-04-16 23:20 | disposition home or self-care (01) ==
LOC: EMR 22:40
DX: M25.572 Pain in left ankle and joints of left foot (principal); M25.571 Pain in right ankle and joints of right foot; R51 Headache
CPT/HCPCS: 99282

== ENCOUNTER 2020-04-17 09:56 | Emergency (ER) | payer MEDICARE, OTHER ==
[~2020-04-17] VITALS: Ht 175.3 cm; Wt 81.6 kg
[~2020-04-17 09:56] MED LIST changes: +TYLENOL EXTRA500 MG ORAL
[2020-04-17 10:58] VITALS: BP 105/68
--- NOTE | 2020-04-17 11:01 | NUR ---
ED Nurse Note:pt. came from home with c/o hearing voices and wants to be placed to psychiatric hospital, he was in ER yesterday and eloped, hx of vania
[2020-04-17 11:50] VITALS: BP 105/68
--- NOTE | 2020-04-17 11:50 | NUR ---
ED Nurse Note: Pt cleared by health care Provider for discharge. DC instructions/prescription was given and explained to pt and verbalized understanding of teachings. All medical deviecs such as ID band removed. Pt is AAO x4, ambulatory and left with all personal belongings.
--- NOTE | 2020-04-18 16:18 | Emergency Room Report ---
History of Present Illness General Chief Complaint: General Complaint Source: Patient Present Illness HPI 30 yo M presents the ED for psych evaluation. States he is hearing voices. States he needs clearance to go to a psychiatric facility. Mentions [place]. States he has been there before. Denies SI or HI. Denies having a plan. Admits to drug use. No other aggravating relieving factors. Denies any other associated symptoms Allergies: Coded Allergies: No Known Allergies (Unverified , 11/14/13) COVID-19 Screening Contact w/high risk pt: No Recent Travel to affected area: No Experienced COVID-19 symptoms?: No COVID-19 Testing performed TERRITORY SALES REPRESENTATIVE: No Patient History Past Medical History: psych hx Past Surgical History: none Pertinent Family History: none Social History: Denies: smoking, alcohol use, drug use Immunizations: UTD Reviewed Nursing Documentation: PMH: Agreed; PSxH: Agreed Nursing Documentation-PMH Past Medical History: No History, Except For Hx Cardiac Problems: No Hx Hypertension: No Hx Pacemaker: No Hx Asthma: No Hx COPD: No Hx Diabetes: No Hx Cancer: No Hx Gastrointestinal Problems: No Hx Dialysis: No History Of Psychiatric Problem: Yes - schizophrenia Hx Neurological Problems: No Hx Cerebrovascular Accident: No Hx Seizures: No Review of Systems All Other Systems: negative except mentioned in HPI Physical Exam Vital Signs Date Time Temp Pulse Resp B/P (MAP) Pulse Ox O2 Delivery O2 Flow Rate FiO2 04/17/20 10:50 98.1 82 16 105/68 (80) 98 Room Air Sp02 EP Interpretation: reviewed, normal General Appearance: no apparent distress, alert, GCS 15, non-toxic Head: normocephalic, atraumatic Eyes: bilateral eye normal inspection, bilateral eye PERRL ENT: hearing grossly normal, normal pharynx, no angioedema, normal voice Neck: full range of motion, supple/symm/no masses Respiratory: chest non-tender, lungs clear, normal breath sounds, speaking full sentences Cardiovascular #1: regular rate, rhythm, no edema Cardiovascular #2: 2+ carotid (R), 2+ carotid (L), 2+ radial (R), 2+ radial (L), 2+ dorsalis pedis (R), 2+ dorsalis pedis (L) Gastrointestinal: normal bowel sounds, non tender, soft, non-distended, no guarding, no rebound Rectal: deferred Genitourinary: normal inspection, no CVA tenderness Musculoskeletal: back normal, normal range of motion, gait/station normal, non- tender Neurologic: alert, motor strength/tone normal, oriented x3, sensory intact, responsive, speech normal Psychiatric: judgement/insight normal, memory normal, mood/affect normal, no suicidal/homicidal ideation Reflexes: 3+ bicep (R), 3+ bicep (L), 3+ tricep (R), 3+ tricep (L), 3+ knee (R), 3+ knee (L) Lymphatic: no adenopathy Medical Decision Making Diagnostic Impression: Primary Impression: Schizo-affective schizophrenia, chronic condition ER Course 30-year-old male presents for psychiatric evaluation. States he is hearing voices. Differentialschizoaffective, psychosis, substance abuse Placed in chair. After initial history physical exam reveals male in no acute distress. Patient maintaining normal eye contact. Flat affect. No evidence of SI or HI. Reviewed EMR. Patient has been here multiple times for similar presentation. Patient always requests transfer to another psych facility stating that they have accepted him and he needs to come here for clearance. There have been numerous visits in last several days. I discussed this with the patient. I explained that we will provide him with medication here and reevaluate. Patient given Zyprexa in ED. On reassessment patient states he felt better and walked out of the ED Diagnosisschizoaffective schizophrenia, chronic Patient eloped from ED Last Vital Signs Date Time Temp Pulse Resp B/P (MAP) Pulse Ox O2 Delivery O2 Flow Rate FiO2 04/17/20 11:50 98.1 82 16 105/68 98 Room Air Status: improved Disposition: ELOPED Condition: Stable Referrals: NOT CHOSEN IPA/,REFERRING (PCP) Tony Liang MD Apr 18, 2020 16:18
== END 2020-04-17 11:50 | disposition home or self-care (01) ==
LOC: EMR 10:50
DX: F25.9 Schizoaffective disorder, unspecified (principal)
CPT/HCPCS: 99282

== ENCOUNTER 2020-04-24 03:26 | Emergency (ER) | payer MEDICARE, OTHER ==
[~2020-04-24] VITALS: Ht 175.3 cm; Wt 88.5 kg
[2020-04-24] MEDS ORDERED: IBUPROFEN600 M1 ORAL (03:38)
--- NOTE | 2020-04-24 03:38 | Emergency Room Report ---
History of Present Illness General Chief Complaint: Lower Extremity Injury Source: Patient Present Illness HPI This is a 30-year-old male with a history of schizoaffective disorder. He presents with complaint of bilateral feet pain. Right greater than left. This is a chronic issue. He has been here numerous times for this already. He said he been walking a lot since hurting more. Pain is 8 out of 10. No fever chills but no nausea no vomiting. Worse with walking. Better with rest. No injury. Allergies: Coded Allergies: No Known Allergies (Unverified , 11/14/13) COVID-19 Screening Contact w/high risk pt: No Recent Travel to affected area: No Experienced COVID-19 symptoms?: No COVID-19 Testing performed ENTRY LEVEL FINANCIAL ANALYST: No Patient History Past Medical History: see triage record, old chart reviewed, psych hx Past Surgical History: none Pertinent Family History: none Social History: Denies: smoking Immunizations: UTD Reviewed Nursing Documentation: PMH: Agreed; PSxH: Agreed Nursing Documentation-PMH Hx Cardiac Problems: No Hx Hypertension: No Hx Pacemaker: No Hx Asthma: No Hx COPD: No Hx Diabetes: No Hx Cancer: No Hx Gastrointestinal Problems: No Hx Dialysis: No Hx Neurological Problems: No Hx Cerebrovascular Accident: No Hx Seizures: No Review of Systems Eye: Denies: eye pain, blurred vision ENT: Denies: ear pain, nose congestion, throat swelling Respiratory: Denies: cough, shortness of breath Cardiovascular: Denies: chest pain, palpitations Gastrointestinal: Denies: abdominal pain, diarrhea, nausea, vomiting Musculoskeletal: Denies: back pain, joint pain Skin: Denies: rash Neurological: Denies: headache, numbness Endocrine: Denies: increased thirst, increased urine Hematologic/Lymphatic: Denies: easy bruising All Other Systems: negative except mentioned in HPI Physical Exam Vital Signs Date Time Temp Pulse Resp B/P (MAP) Pulse Ox O2 Delivery O2 Flow Rate FiO2 04/24/20 03:27 98.4 50 16 139/66 (90) 98 Room Air Vitals is unremarkable Sp02 EP Interpretation: reviewed, normal General Appearance: well appearing, no apparent distress, alert Head: normocephalic, atraumatic Eyes: bilateral eye PERRL, bilateral eye EOMI ENT: hearing grossly normal, normal pharynx Neck: full range of motion, supple, no meningismus Respiratory: chest non-tender, lungs clear, normal breath sounds Cardiovascular #1: regular rate, rhythm, no murmur Gastrointestinal: normal bowel sounds, non tender, no mass, no organomegaly, no bruit, non-distended Musculoskeletal: back normal, normal range of motion, gait/station normal, other - Bilateral feet show no evidence of any blisters. Psychiatric: mood/affect normal Medical Decision Making Homeless Attestation I, The treating physician, Dr Luc Self, has assessed and agrees that patient is medically stable for discharge to an outpatient disposition. Diagnostic Impression: Primary Impression: Foot pain, bilateral ER Course This patient presents with bilateral foot pain. No trauma. No infection. Will discharge home. Last Vital Signs Date Time Temp Pulse Resp B/P (MAP) Pulse Ox O2 Delivery O2 Flow Rate FiO2 04/24/20 03:27 98.4 50 16 139/66 (90) 98 Room Air Status: improved Disposition: HOME, SELF-CARE Condition: Stable Scripts Ibuprofen* (MOTRIN*) 600 Mg Tablet 600 MG ORAL Q6HR, #20 TAB Prov: Luc Self MD 04/24/20 Additional Instructions: Follow-up with your doctor in 7 days. Elevate your feet. Return if worse. Luc Self MD Apr 24, 2020 03:38
[2020-04-24 03:45] VITALS: BP 139/66
== END 2020-04-24 03:45 | disposition home or self-care (01) ==
LOC: EMR 03:38
DX: M25.572 Pain in left ankle and joints of left foot (principal); M25.571 Pain in right ankle and joints of right foot
CPT/HCPCS: 99281

== ENCOUNTER 2020-04-24 17:24 | Emergency (ER) | payer MEDICARE, OTHER ==
[~2020-04-24] VITALS: Ht 175.3 cm; Wt 90.7 kg
[~2020-04-24 17:24] MED LIST changes: +IBUPROFEN600 M1 ORAL
[2020-04-24 17:42] VITALS: BP 117/74
[2020-04-24 17:45] VITALS: BP 121/79
== END 2020-04-24 17:44 | disposition left against medical advice (07) ==
LOC: EMR 17:40
DX: Z53.21 Procedure and treatment not carried out due to patient leaving prior to being seen by health care provider (principal)
CPT/HCPCS: 99281

== ENCOUNTER 2020-05-01 14:52 | Emergency (ER) | payer MEDICARE, OTHER ==
[~2020-05-01] VITALS: Ht 175.3 cm; Wt 81.6 kg
[2020-05-01 15:25] VITALS: BP 120/74
[2020-05-01] MEDS ORDERED: BENZTROPINE MESY1 MG ORAL (15:28)
[2020-05-01 15:35] VITALS: BP 120/74
--- NOTE | 2020-05-01 17:24 | Emergency Room Report ---
History of Present Illness General Chief Complaint: Behavioral Complaint Source: Patient Present Illness HPI 30-year-old male with history of schizophrenia, bipolar disorder has been here multiple times here reporting that he wants to get placed into a psychiatric facility and wants psychiatric clearance. Mentions [place], denies any SI or HI,. Patient reports that he has not taken his Zyprexa when asked why not he says in "I do not know.". Denies any HI at this time. I told patient I will give him Zyprexa and will reevaluate patient however patient eloped before the medication was given. Allergies: Coded Allergies: No Known Allergies (Unverified , 11/14/13) COVID-19 Screening COVID-19 risk:Contact w/high r: No COVID-19 risk:Travel to affect: No Has patient experienced huffman: No COVID-19 Testing performed RAILROAD MECHANIC: No Patient History Past Medical History: see triage record Past Surgical History: none Family History: none Reviewed Nursing Documentation: PMH: Agreed; PSxH: Agreed Nursing Documentation-PMH Hx Cardiac Problems: No Hx Hypertension: No Hx Pacemaker: No Hx Asthma: No Hx COPD: No Hx Diabetes: No Hx Cancer: No Hx Gastrointestinal Problems: No Hx Dialysis: No History Of Psychiatric Problem: Yes Hx Neurological Problems: No Hx Cerebrovascular Accident: No Hx Seizures: No Review of Systems All Other Systems: negative except mentioned in HPI Physical Exam Vital Signs Date Time Temp Pulse Resp B/P (MAP) Pulse Ox O2 Delivery O2 Flow Rate FiO2 10/5/20 15:22 98.1 68 18 120/74 (89) 99 Room Air Sp02 EP Interpretation: reviewed, normal General Appearance: alert/responsive, no apparent distress, GCS 15, non-toxic Head: normocephalic, atraumatic Eyes: PERRL, lids + conjunctiva normal ENT: hearing intact, no angioedema Neck: supple/symm/no masses, no meningismus Respiratory: effort normal, no wheezing, chest symmetrical Cardiovascular: regular rate, rhythm, no edema Gastrointestinal: normal inspection Musculoskeletal: gait & station normal Neurologic: oriented x3 Psychiatric: judgment & insight normal, no suicidal/homicidal ideation Skin: normal inspection Lymphatic: normal inspection Medical Decision Making PA Attestation Diagnosis and treatment plans were reviewed and discussed with my supervising physician Dr. Garland Diagnostic Impression: Primary Impression: Eloped from emergency department Additional Impression: Encounter for psychiatric assessment ER Course 30-year-old male with history of schizophrenia, bipolar disorder has been here multiple times here reporting that he wants to get placed into a psychiatric facility and wants psychiatric clearance. Mentions [place], denies any SI or HI,. Patient reports that he has not taken his Zyprexa when asked why not he says in "I do not know.". Denies any HI at this time. I told patient I will give him Zyprexa and will reevaluate patient after taking the medication as he has not taken any long time however patient eloped before the medication was given. Ddx considered but are not limited to: generalized anxiety disorder, panic attack, depression with psycotic featurs, bipolar disorder, drug overdose Vital signs: are WNL, pt. is afebrile H&PE are most consistent with: Eloped, psychiatric evaluation ORDERS: none required at this time, the diagnosis is clinical ED INTERVENTIONS: Zyprexa Patient eloped before the administration of medication Last Vital Signs Date Time Temp Pulse Resp B/P (MAP) Pulse Ox O2 Delivery O2 Flow Rate FiO2 05/01/20 15:22 98.1 68 18 120/74 (89) 99 Room Air Disposition: ELOPED Condition: Stable Mauricio Adkins May 01, 2020 17:24
== END 2020-05-01 15:45 | disposition left against medical advice (07) ==
LOC: EMR 15:35
DX: R44.0 Auditory hallucinations (principal); Z53.29 Procedure and treatment not carried out because of patient's decision for other reasons
CPT/HCPCS: 99282

== ENCOUNTER 2020-07-12 15:20 | Emergency (ER) | payer MEDICARE, OTHER ==
[~2020-07-12] VITALS: Ht 175.3 cm; Wt 90.7 kg
[~2020-07-12 15:20] MED LIST changes: +BENZTROPINE MESY1 MG ORAL
[2020-07-12 15:43] VITALS: BP 128/80
--- NOTE | 2020-07-12 15:45 | NUR ---
ED Nurse Note: pt walked in to ER from home for medical clearance. pt wants to be admitted to [facility] and physical medical clearance needed. pt aao x4 and ambulatory. calm and cooperative. skin clean and intact. no cardiac or pulmonary distress noted at this time.
[2020-07-12 15:48] VITALS: BP 128/80
--- NOTE | 2020-07-12 15:48 | NUR ---
AMA: Pt refused plan of care and decided to leave against medical advice. ERPA notified, explained risk, verbally understood. AAOx4, no SOB. AMA form signed.
--- NOTE | 2020-07-12 17:36 | Emergency Room Report ---
History of Present Illness General Chief Complaint: Medical Clearance Source: Patient Present Illness HPI 30-year-old male with history of schizophrenia who has been here multiple times requesting medical clearance. Patient usually works in [employer] for being transferred to [employer] and always leaves AGAINST MEDICAL ADVICE when he gets [place]. Advised patient that I will give his medication which she reports that has been changed to Abilify recently by his psychiatrist and he can go to [place] himself. Patient reports that he does not want to get Abilify at this time will cause drowsiness and will walk and check himself and to [place] himself. Denies SI and HI. 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 COVID-19 Screening: Negative COVID-19 COVID-19 Testing Source: a week ago Patient History Past Medical History: see triage record Past Surgical History: none Family History: none Immunizations: UTD Reviewed Nursing Documentation: PMH: Agreed; PSxH: Agreed Nursing Documentation-PMH Past Medical History: No Stated History Hx Cardiac Problems: No Hx Hypertension: No Hx Pacemaker: No Hx Asthma: No Hx COPD: No Hx Diabetes: No Hx Cancer: No Hx Gastrointestinal Problems: No Hx Dialysis: No Hx Neurological Problems: No Hx Cerebrovascular Accident: No Hx Seizures: No Review of Systems All Other Systems: negative except mentioned in HPI Physical Exam Vital Signs Date Time Temp Pulse Resp B/P (MAP) Pulse Ox O2 Delivery O2 Flow Rate FiO2 07/12/20 15:39 98.6 105 18 128/80 (96) 97 Room Air Sp02 EP Interpretation: reviewed, normal General Appearance: alert/responsive, no apparent distress, GCS 15, non-toxic Head: atraumatic Eyes: PERRL, lids + conjunctiva normal ENT: hearing intact, no angioedema Neck: supple/symm/no masses, no meningismus Respiratory: effort normal, no wheezing, chest symmetrical Cardiovascular: regular rate, rhythm, no edema Gastrointestinal: non-distended Musculoskeletal: gait & station normal Neurologic: normal inspection, oriented x3 Psychiatric: judgment & insight normal, no suicidal/homicidal ideation Skin: no rash Lymphatic: normal inspection Medical Decision Making PA Attestation All my diagnosis and treatment plans were reviewed ad discussed with my supervising physician Dr. Thompson Diagnostic Impression: Primary Impression: Left against medical advice ER Course 30-year-old male with history of schizophrenia who has been here multiple times requesting medical clearance. Patient usually works in [employer] for being transferred to [place] and always leaves AGAINST MEDICAL ADVICE when he gets [place]. Advised patient that I will give his medication which she reports that has been changed to Abilify recently by his psychiatrist and he can go to [place] himself. Patient reports that he does not want to get Abilify at this time will cause drowsiness and will walk and check himself and to [place] himself. Denies SI and HI. Ddx considered but are not limited to: generalized anxiety disorder, panic attack, depression with psychotic featurs, bipolar disorder, drug overdose Vital signs: are WNL, pt. is afebrile H&PE are most consistent with: Schizophrenia, left AGAINST MEDICAL ADVICE ORDERS: none required at this time, the diagnosis is clinical ED INTERVENTIONS: None required at this time. Patient was evaluated in the context of the global COVID-19 pandemic, which ne cessitated consideration that the patient might be at risk for infection with the SARS-COV-2 virus that causes COVID-19. Institutional protocols and algorithms that pertain to the evaluation of patients at risk for COVID-19 are in a state of rapid change based on information relieved by multiple regulatory bodies including the CDC and the federal and state organizations. These po licies and algorithms were followed during the patient's care in the ED. Patient left AGAINST MEDICAL ADVICE full judgment in making this decision and denies SI and HI. Last Vital Signs Date Time Temp Pulse Resp B/P (MAP) Pulse Ox O2 Delivery O2 Flow Rate FiO2 07/12/20 15:48 98.6 78 18 128/80 97 Room Air Disposition: AGAINST MEDICAL ADVICE Condition: Stable Referrals: NOT CHOSEN IPA/,REFERRING (PCP) Mauricio Adkins Jul 12, 2020 17:36
== END 2020-07-12 16:00 | disposition left against medical advice (07) ==
LOC: EMR 15:55
DX: F20.9 Schizophrenia, unspecified (principal); Z53.29 Procedure and treatment not carried out because of patient's decision for other reasons
CPT/HCPCS: 99281

== ENCOUNTER → 2020-08-30 | Emergency (ER) | payer MEDICARE, OTHER ==
[~2020-08-30] VITALS: Ht 182.9 cm; Wt 81.6 kg
[2020-08-30 16:17] VITALS: BP 123/64
--- NOTE | 2020-08-30 16:23 | NUR ---
ED Nurse Note: Patient left without being seen by ERMD or PA. ER charge nurse was notified.
[2020-08-30 16:24] VITALS: BP 123/64
--- NOTE | 2020-08-30 16:45 | Emergency Room Report ---
History of Present Illness General Chief Complaint: Behavioral Complaint Present Illness HPI This patient left prior to evaluation by medical provider. 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 COVID-19 Screening: Negative COVID-19 COVID-19 Testing Source: few days ago Patient History Past Medical History: see triage record Past Surgical History: none Pertinent Family History: none Reviewed Nursing Documentation: PMH: Agreed; PSxH: Agreed Nursing Documentation-PMH Hx Cardiac Problems: No Hx Hypertension: No Hx Pacemaker: No Hx Asthma: No Hx COPD: No Hx Diabetes: No Hx Cancer: No Hx Gastrointestinal Problems: No Hx Dialysis: No Hx Neurological Problems: No Hx Cerebrovascular Accident: No Hx Seizures: No Physical Exam Vital Signs Date Time Temp Pulse Resp B/P (MAP) Pulse Ox O2 Delivery O2 Flow Rate FiO2 08/30/20 16:17 98.6 110 15 123/64 (83) 96 Room Air Medical Decision Making PA Attestation Dr. Stewart Is my supervising Physician whom patient management has been discussed with. Diagnostic Impression: Primary Impression: Patient left without being seen ER Course This patient left prior to evaluation by medical provider. Last Vital Signs Date Time Temp Pulse Resp B/P (MAP) Pulse Ox O2 Delivery O2 Flow Rate FiO2 08/30/20 16:24 98.6 110 15 123/64 96 Room Air Disposition: LEFT W/OUT BEING SEEN Condition: Unknown Referrals: NOT CHOSEN IPA/,REFERRING (PCP) Elsa Bo Aug 30, 2020 16:45
== END | disposition home or self-care (01) ==
LOC: EMR 16:25
DX: F91.9 Conduct disorder, unspecified (principal); Z53.21 Procedure and treatment not carried out due to patient leaving prior to being seen by health care provider